=== PATIENT | male | born 1970 | race Asian ===

== ENCOUNTER 2021-05-29 01:45 | Inpatient (IN) ==
[2021-05-29] MEDS ORDERED: dexAMETHasone**PF** 10 MG/ML VIAL IV ONE (02:02)
[2021-05-29] MEDS ORDERED: ALBUT/IPRATROP 3MG/0.5MG NEB 3 ML VIAL NEB STA (02:02)
[2021-05-29] MEDS ORDERED: SODIUM CHLORIDE 0.9% 1000ML 1,000 ML IV SCH (02:15)
[2021-05-29 02:42] LABS: Hematocrit (blood only) 41.4 % (42-52); Hemoglobin 14.8 g/dL (14.0-18.0); Immature Granulocytes # (auto) 0.03 K/uL (0.00-0.02); Immature Granulocytes % (auto) 0.4 %; Lymphocytes # (auto) 0.45 K/uL (1.2-3.4); Lymphocytes % (auto) 6.5 %; Mean Corpuscular Hemoglobin 30.5 pg (25-34); Mean Corpuscular Hgb Conc 35.7 g/dL (32-36); Mean Corpuscular Volume 85.4 fL (80-100); Mean Platelet Volume 10.2 fL (7.4-10.4); Monocytes # (auto) 0.63 K/uL (0.11-0.59); Monocytes % (auto) 9.1 %; Neutrophils # (auto) 5.81 K/uL (1.4-6.5); Platelet Count 191 K/uL (130-400); RDW Coefficient of Variation 12.3 % (11.5-14.5); RDW Standard Deviation 38.6 fL (36.4-46.3); Red Blood Count 4.85 M/uL (4.7-6.1); White Blood Count 6.92 K/uL (4.8-10.8)
[2021-05-29 02:55] LABS: Base Excess VBG -0.6 mEq/L; HCO3 VBG 21 mmol/L; Oxygen Saturation VBG 75.4 %; PCO2 VBG 27 mmHg (38-50); PO2 VBG 36 mmHg; pH VBG 7.51 (7.36-7.41)
[2021-05-29 03:00] LABS: Albumin Level 2.7 gm/dl (3.4-5.0); BUN Creatinine Ratio 15.5 (10-20); Calcium 8.1 mg/dl (8.5-10.1); Est GFR (African American) 118.3 ml/min; Est GFR (Non-African American) 102.1 ml/min
[2021-05-29 03:03] LABS: Albumin Globulin Ratio 0.7 (0.9-2); Bilirubin,Total 0.6 mg/dl (0.2-1); Globulin 3.9 gm/dl (2.5-4.0); Total Protein 6.6 gm/dl (6.4-8.2)
[2021-05-29] MEDS ORDERED: BACLOFEN 10 MG TAB PO STA (03:25)
[2021-05-29] MEDS ORDERED: OPTIRAY 320 125ml IV ONE (03:35)
[2021-05-29] MEDS ORDERED: REMDESIVIR 200 MG in SODIUM CHLORIDE 0.9% 210 ML IV STA (03:44)
--- NOTE | 2021-05-29 03:44 | History & Physical Report ---
Date of Service May 29, 2021 Assessment & Plan (1) Pneumonia due to 2019 novel coronavirus: Plan: Pneumonia due to COVID-19 virus/with hypoxia/worsening chest x-ray on oral dexamethasone 6 mg daily- Dexamethasone 10 mg IV given by the ED Dexamethasone 6 mg IV every morning Remdesivir IV per protocol Azithromycin 5 mg IV daily Guaifenesin extended release 1200 mg p.o. twice daily Albuterol HFA 2 puffs 4 times daily, and every 2 hours as needed DuoNebs every 2 hours as needed Vitamin D 5000 international units p.o. daily Zinc sulfate 220 mg p.o. daily Nasal cannula oxygen, titrate to keep pulse ox around 95% Famotidine 20 mg IV every 12 hours Baclofen 10 mg p.o. 4 times daily as needed hiccups. May occur shortly after administration of Decadron Patient will be placed on Lovenox 0.5 mg kilogram subcu every 12 hours for DVT prophylaxis, but if CTA for PE is positive, will place on Lovenox 1 mg/kg subcu every 12 hours (2) Hypoxia: Plan: See above (3) Hypo-osmolar hyponatremia: Plan: Sodium 124, serum osmolality 260, urine osmolality 205 Patient denies any different fluid intake than usual Question if associated with COVID-19 infection We empirically gave furosemide 20 mg IV in the ED before osmolality results returned Fluid restrict 1500 mL daily Follow serial CMP and magnesium levels (4) Abnormal EKG: Plan: EKG with nonspecific inferior changes The patient will be admitted to telemetry for serial cardiac enzymes, serial EKG's, cardiac rhythm monitoring. (5) Hypothyroidism: Plan: Continue levothyroxine 25 mcg daily (6) Obstructive sleep apnea: Plan: CPAP/BiPAP at bedtime as needed History of Present Illness Chief Complaint: The patient presents to the emergency department with worsening shortness of breath and chest pain Primary Care Provider: Favian Griffith DO The patient is a 50-year-old male with a past medical history including obstructive sleep apnea and hypothyroidism, who reportedly was diagnosed in the outpatient setting with COVID-19 pneumonia several days ago. He has been seen in the emergency department on May 25 and again on May 28, having been given Decadron 6 mg daily and albuterol HFA. He presents to the emergency department with worsening symptoms of shortness of breath, dyspnea on exertion, and in the ED has developed severe left-sided chest pain. Patient also developed hiccups after Being given IV Decadron, which he reports happened in the past every getting an injection of cortisol. He reported his pulse ox is 82% while active at home, and was noted to be 90% at rest while talking with me in the emergency department. He also reports bilateral leg swelling and cramping. Abnormal laboratories: Sodium 124, AST 55, albumin 2.7, serum osmolality 260, urine osmolality 205, glucose 129. COVID-19 test is confirmed positive in the ED Chest x-ray showed worsening multifocal pneumonia. CT angiography of chest for PE ED was negative on 05/25/2021, and is repeated this evening due to new severe chest pain. Allergies Allergy/AdvReac Type Severity Reaction Status Date / Time metronidazole Allergy Intermediate Hives Verified 05/29/21 02:10 pollen extracts Allergy Intermediate ITCHY, Verified 05/29/21 02:10 WATERY EYES, SNEEZING, CONGESTION APPLE SKINS Allergy Intermediate MOUTH Uncoded 05/29/21 02:10 ACE AND ITCHY-CAN EAT APPLE NOT SKIN. 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 Sleep apnea CAN'T TOLERATE CPAP Surgical History S/P wisdom tooth extraction Family History Father Sleep apnea Denies family history of Ovarian cancer Prostate cancer Myocardial infarction Breast cancer Colorectal cancer Social History Smoking Status: Never smoker Tobacco Type: Cigarettes Second Hand Exposure: No; Hx Alcohol Use: Yes Alcohol type: wine Hx Substance Use: No Preferred Language: Syriac Communication Ability: Effective Visual Impairment: No Limitations Hearing Ability: Normal Product Operations Associate Required: No Beliefs That Will Affect Care: None marital status: Single Current Living Situation: Parent Current Living Situation Comment: w/mother current occupational status: employed 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 Feels Safe at Home: Yes Childhood Exposure to Second-Hand Smoke: Yes Dental Care, Regularly: Yes Physical Activity Frequency: 3-4 Times per Week Seatbelt Use: always Sunscreen Use: Yes Assistive Devices: Glasses Review of Systems Review of Systems: The patient denies palpitations, sore throat, fevers, chills, sweats, nausea, vomiting, diarrhea , constipation, abdominal pain, pelvic pain, blood in urine or stool, dysuria, urinary frequency or urgency, lightheadedness, dizziness, headache, memory loss, loss of consciousness, rash, abnormal bruising or bleeding, imbalance, focal or generalized weakness, numbness or tingling in arms or legs, generalized arthralgias or myalgias, back or neck pain, or night sweats. The review of systems is otherwise negative other than for that already noted above, and at least 10 systems have been reviewed. Physical Exam Physical Exam: The patient is awake, alert and oriented 3, well developed and well nourished, normocephalic and atraumatic, lying in bed and in intermittent mild to moderate acute distress due to left-sided chest pain worsened with breathing HEENT--PERRL, EOMI, mucous membranes and oropharynx normal. Neck--supple. No JVD. No bruits. Thyroid normal, trachea midline, no adenopathy. Heart--normal S1 and S2. No murmurs, rubs or gallops. Lungs--coarse breath sounds bilaterally. Mild to moderate respiratory distress associated with intermittent chest pain. No accessory muscle use. Abdomen--normal bowel sounds and soft. Nontender. Nondistended, no hernias or masses, no organomegaly. Extremities--no cyanosis or clubbing. No edema. Dermatologic--normal skin turgor, normal color, no abnormal lymph nodes, no rash. Neurologic--cranial nerves II through XII grossly intact. Rheumatologic--normal range of motion. Psychiatric--normal affect. Results & Data Results & Data ([facility]) Vital Signs (Past 12 Hours) Vital Signs Temp Pulse Pulse Resp BP Pulse Ox 05/29/21 02:34 60 16 93 05/29/21 01:49 97.9 F 89 16 110/58 L 92 Laboratory Results Laboratory Results WBC 6.92 K/uL (4.8-10.8) 05/29/21 02:24 RBC 4.85 M/uL (4.7-6.1) 05/29/21 02:24 Hgb 14.8 g/dL (14.0-18.0) 05/29/21 02:24 Hct 41.4 % (42-52) L 05/29/21 02:24 MCV 85.4 fL (80-100) 05/29/21 02:24 MCH 30.5 pg (25-34) 05/29/21 02:24 MCHC 35.7 g/dL (32-36) 05/29/21 02:24 RDW Std Deviation 38.6 fL (36.4-46.3) 05/29/21 02:24 RDW Coeff of Magdaleno 12.3 % (11.5-14.5) 05/29/21 02:24 Plt Count 191 K/uL (130-400) 05/29/21 02:24 MPV 10.2 fL (7.4-10.4) 05/29/21 02:24 Immature Gran % (Auto) 0.4 % 05/29/21 02:24 Neut % (Auto) 84.0 % 05/29/21 02:24 Lymph % (Auto) 6.5 % 05/29/21 02:24 [place] % (Auto) 9.1 % 05/29/21 02:24 Eos % (Auto) 0.0 % 05/29/21 02:24 Baso % (Auto) 0.0 % 05/29/21 02:24 Neut # (Auto) 5.81 K/uL (1.4-6.5) 05/29/21 02:24 Lymph # (Auto) 0.45 K/uL (1.2-3.4) L 05/29/21 02:24 [place] # (Auto) 0.63 K/uL (0.11-0.59) H 05/29/21 02:24 Eos # (Auto) 0.00 K/uL (0-0.5) 05/29/21 02:24 Baso # (Auto) 0.00 K/uL (0-0.2) 05/29/21 02:24 Immature Gran # (Auto) 0.03 K/uL (0.00-0.02) H 05/29/21 02:24 VBG pH 7.51 (7.36-7.41) H 05/29/21 02:32 VBG pCO2 27 mmHg (38-50) L 05/29/21 02:32 VBG pO2 36 mmHg 05/29/21 02:32 VBG HCO3 21 mmol/L 05/29/21 02:32 VBG O2 Saturation 75.4 % 05/29/21 02:32 VBG Base Excess -0.6 mEq/L 05/29/21 02:32 Sodium 124 mmol/L (136-145) L 05/29/21 02:24 Potassium 4.0 mmol/L (3.5-5.1) 05/29/21 02:24 Chloride 94 mmol/L (98-107) L 05/29/21 02:24 Carbon Dioxide 21 mmol/L (21-32) 05/29/21 02:24 Anion Gap 9.0 (3-11) 05/29/21 02:24 BUN 13 mg/dl (7-18) 05/29/21 02:24 Creatinine 0.84 mg/dl (0.6-1.4) 05/29/21 02:24 Est Cr Clr Drug Dosing 110.0 ml/min 05/29/21 02:24 Est GFR ( Amer) 118.3 ml/min 05/29/21 02:24 Est GFR (Non-Af Amer) 102.1 ml/min 05/29/21 02:24 BUN/Creatinine Ratio 15.5 (10-20) 05/29/21 02:24 Glucose 129 mg/dl (70-99) H 05/29/21 02:24 Osmolality 260 mOsm/kg (280-300) L 05/29/21 02:33 Calcium 8.1 mg/dl (8.5-10.1) L 05/29/21 02:24 Total Bilirubin 0.6 mg/dl (0.2-1) 05/29/21 02:24 AST 55 U/L (15-37) H 05/29/21 02:24 ALT 52 U/L (12-78) 05/29/21 02:24 Alkaline Phosphatase 57 U/L (45-117) 05/29/21 02:24 Total Protein 6.6 gm/dl (6.4-8.2) 05/29/21 02:24 Albumin 2.7 gm/dl (3.4-5.0) L 05/29/21 02:24 Globulin 3.9 gm/dl (2.5-4.0) 05/29/21 02:24 Albumin/Globulin Ratio 0.7 (0.9-2) L 05/29/21 02:24 Urine Color Yellow 05/29/21 04:12 Urine Appearance Clear (Clear) 05/29/21 04:12 Urine pH 7.0 (4.5-7.5) 05/29/21 04:12 Ur Specific [place] 1.006 (1.000-1.030) 05/29/21 04:12 Urine Protein Negative (Negative) 05/29/21 04:12 Urine Glucose (UA) Negative (Negative) 05/29/21 04:12 Urine Ketones Negative (Negative) 05/29/21 04:12 Urine Blood Negative (Negative) 05/29/21 04:12 Urine Nitrite Negative (Negative) 05/29/21 04:12 Urine Bilirubin Negative (Negative) 05/29/21 04:12 Urine Urobilinogen Negative (Negative) 05/29/21 04:12 Ur Leukocyte Esterase Negative (Negative) 05/29/21 04:12 Urine Osmolality 205 mOsm/kg (500-800) L 05/29/21 04:12 COVID-19 Eval Order Covid19 at [facility] 05/29/21 02:10 SARS-CoV-2 (PCR) POSITIVE (Negative) A* 05/29/21 02:10 ECG Additional Comments: ASHKAN GONZALES ID:[id number] 25-MAY-2021 11:21:53 [facility]- EDSTAT ROUTINE RETRIEVAL Sinus bradycardia Nonspecific T wave abnormality Inferior leads Abnormal ECG No previous ECGs available Confirmed by Albert Almonte ([id number]) on 05/25/2021 5:58:05 PM 25mm/s 10mm/mV 150Hz 9.0.9 12SL 241 KISHORE: 16 Referred by: REFERRED SELF Confirmed By: Albert Almonte Vent. rate 58 BPM ID interval 190 ms QRS duration 86 ms QT/QTc 410/402 ms P-R-T axes 33 46 -13 1970 (50 yr) Male 5in 2lb Room: Loc:15 Dining Room Tables Set Up Attendant:Korin High T Code Status & VTE Plan Code Status Full code VTE Prophylaxis Plan VTE Prophylaxis will be ordered: Yes PG Care Time/CCT Total # of Minutes Spent Total Time Spent with Patient: Total time spent is greater than 50% in coordination of care (as documented) at patient's floor/unit and/or counseling patient: Coding Level of Care Code 59540 Initial Inpt Care Lvl 3 Diagnoses Hypoxia R09.02 Abnormal EKG R94.31 Pneumonia due to 2019 novel coronavirus U07.1; J12.82 Hypothyroidism E03.9 Obstructive sleep apnea G47.33 Hypo-osmolar hyponatremia E87.1
[2021-05-29] MEDS ORDERED: FUROSEMIDE 40 MG/4 ML VIAL IV STA (04:00)
[2021-05-29 04:21] LABS: Appearance Urine Clear (Clear); Bilirubin Urine Negative (Negative); Blood Urine Negative (Negative); Color Urine Yellow; Glucose Urine UA Negative (Negative); Ketones Urine Negative (Negative); Leukocyte Esterase Urine Negative (Negative); Nitrite Urine Negative (Negative); Protein Urine Negative (Negative); Specific Gravity Urine 1.006 (1.000-1.030); Urobilinogen Urine Negative (Negative)
[2021-05-29] MEDS ORDERED: ALBUT/IPRATROP 3MG/0.5MG NEB 3 ML VIAL NEB PRN (05:01)
[2021-05-29] MEDS ORDERED: ONDANSETRON INJ 2 MG/ML 2 ML VIAL IV PRN (05:01)
[2021-05-29] MEDS ORDERED: ACETAMINOPHEN 325 MG TAB PO PRN (05:01)
[2021-05-29] MEDS ORDERED: ALBUTEROL HFA 8 GM INHALER INH PRN (05:06)
[2021-05-29] MEDS: SODIUM CHLORIDE 0.9% 10ML FLUSH IV SCH (05:25)
[2021-05-29] MEDS: ENOXAPARIN INJ 40 MG/0.4 ML SYR SQ SCH ×2 (06:52→17:11)
[2021-05-29] MEDS ORDERED: ALBUTEROL HFA 8 GM INHALER INH SCH (07:00)
--- NOTE | 2021-05-29 07:12 | Emergency Department Note ---
History of Present Illness General Chief complaint: Respiratory Problems Stated complaint: OXYGEN DROPPED TO BELOW 80'S Time Seen by Provider: 05/29/21 01:57 History of Present Illness Maximum Pain Intensity: 8 This is a 50-year-old male presenting to the emergency department for evaluation after having hypoxia at home. The patient has been seen a few times this week after being diagnosed with COVID-19 as an outpatient. I did evaluate the patient about 24 hours ago where he was maintaining his O2 saturation, but did have a chest x-ray that showed worsening Covid pneumonia. The patient began with symptoms approximately 8 days ago, and they are progressive. He does have a home pulse oximeter, and was persistently between 82 and 84% at home, increasing his concern. The patient rates his overall discomfort an 8/10. Home Medications Medication Instructions Recorded Confirmed Type levothyroxine 25 mcg tablet 25 mcg PO QPM 03/02/21 05/29/21 History albuterol sulfate 90 mcg/actuation 3 inh INHALATION Q6H #18 g 05/25/21 05/29/21 Rx aerosol inhaler dexamethasone 6 mg tablet 6 mg PO DAILY #7 tab 05/25/21 05/29/21 Rx (Decadron) Allergies Allergy/AdvReac Type Severity Reaction Status Date / Time apple Allergy Intermediate SKINS Verified 05/29/21 05:46 ONLY~MOUTH ACE AND ITCHY-CAN EAT APPLE NOT SKIN. 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 Sleep apnea CAN'T TOLERATE CPAP Surgical History S/P wisdom tooth extraction Family History Father Sleep apnea Denies family history of Ovarian cancer Prostate cancer Myocardial infarction Breast cancer Colorectal cancer Social History Smoking Status: Never smoker Tobacco Type: Cigarettes Second Hand Exposure: No; Hx Alcohol Use: Yes Alcohol type: wine Hx Substance Use: No Preferred Language: Polish Communication Ability: Effective Visual Impairment: No Limitations Hearing Ability: Normal Obstetrician/Gynecologist Required: No Beliefs That Will Affect Care: None marital status: Single Current Living Situation: Parent Current Living Situation Comment: w/mother 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 Other Information That Helps Us Care for You: No Feels Safe at Home: Yes Safety Concerns: Feels Safe At This Time Childhood Exposure to Second-Hand Smoke: Yes Dental Care, Regularly: Yes Physical Activity Frequency: 3-4 Times per Week Seatbelt Use: always Sunscreen Use: Yes Assistive Devices: Glasses Review of Systems A total of 10 systems reviewed and were otherwise negative Physical Exam Vital Signs Vital Signs - 24 hr 05/29/21 01:46 05/29/21 01:49 05/29/21 02:00 Temperature 36.6 C Temperature Source Temporal Artery Scan Pulse Rate 89 Pulse Rate [Apical] Pulse Rate from SpO2 Sensor 57 L Respiratory Rate 16 23 Respiratory Effort / Characteristics Respiratory Depth Respiratory Pattern Blood Pressure 110/58 L 126/75 Blood Pressure Mean 75 92 Pulse Oximetry 92 92 Oxygen Delivery Method Room Air Room Air Sepsis Recent Fever Within 48 Hours No Sepsis New/Unexplained Change in Mental Status No Sepsis Action Taken by Nursing No Action Required 05/29/21 02:03 05/29/21 02:34 Temperature Temperature Source Pulse Rate Pulse Rate [Apical] 60 Pulse Rate from SpO2 Sensor Respiratory Rate 16 Respiratory Effort / Characteristics Non-Labored Spontaneous Spontaneous Respiratory Depth Normal Respiratory Pattern Regular Blood Pressure Blood Pressure Mean Pulse Oximetry 93 Oxygen Delivery Method Room Air Sepsis Recent Fever Within 48 Hours Sepsis New/Unexplained Change in Mental Status Sepsis Action Taken by Nursing VITALS: Vitals are noted on the nurse's note and reviewed by myself. Vital signs as above GENERAL: Moderately ill appearing male who is answering questions appropriately HEAD: Normocephalic atraumatic. HEART: Regular rate and rhythm without murmurs gallops or rubs. LUNGS: Coarse sounds throughout ABDOMEN: Positive normal bowel sounds x 4. Soft, nontender, without masses or organomegaly. No guarding or rebound tenderness. MUSCULOSKELETAL: No muscle atrophy, erythema, or edema noted. Full range of motion in all extremities. Course Administered Medications Enoxaparin Sodium (Enoxaparin Inj 40 Mg/0.4 Ml Syr) 40 mg SQ Q12H PALOMA Stop: 06/28/21 05:59 Last Admin: 05/29/21 06:52 Dose: 40 mg Documented by: [id number] Sodium Chloride (Sodium Chloride 0.9% 10ml Flush) 30 ml IV Q24H PALOMA Stop: 06/02/21 12:01 Last Admin: 05/29/21 05:25 Dose: 30 ml Documented by: [id number] Discontinued Medications Albuterol (Albut/Ipratrop 3mg/0.5mg Neb 3 Ml Vial) 3 ml NEB NOW STA Stop: 05/29/21 02:03 Last Admin: 05/29/21 02:33 Dose: 3 ml Documented by: [id number] Baclofen (Baclofen 10 Mg Tab) 10 mg PO NOW STA Stop: 05/29/21 03:26 Last Admin: 05/29/21 03:57 Dose: 10 mg Documented by: [id number] Dexamethasone Sodium Phosphate (DexamethasonePf 10 Mg/Ml Vial) 10 mg IV NOW ONE Stop: 05/29/21 02:03 Last Admin: 05/29/21 02:40 Dose: 10 mg Documented by: [id number] Furosemide (Furosemide 40 Mg/4 Ml Vial) 20 mg IV NOW STA Stop: 05/29/21 04:01 Last Admin: 05/29/21 04:08 Dose: 20 mg Documented by: [id number] Sodium Chloride (Nss 1000ml) 1,000 mls @ 999 mls/hr IV .Q1H1M PALOMA Stop: 05/29/21 03:15 Last Infusion: 05/29/21 03:41 Dose: 0 mls/hr Documented by: [id number] Admin: 05/29/21 02:40 Dose: 999 mls/hr Documented by: [id number] Remdesivir 200 mg/ Sodium (Chloride) 250 mls @ 125 mls/hr IV ONE STA; Protocol Stop: 05/29/21 05:43 Last Admin: 05/29/21 05:22 Dose: 125 mls/hr Documented by: [id number] Ioversol (Optiray 320 125ml) 119 ml IV ONCE ONE Stop: 05/29/21 03:36 Last Admin: 05/29/21 03:36 Dose: 1 ml Documented by: [id number] Medical Decision Making Differential Diagnosis Differential diagnosis: Etiologies such as viral syndrome, otitis, pharyngitis, pneumonia, influenza, meningitis, urinary tract infection, septic arthritis, soft tissue infectious process, intra-abdominal process, sepsis, bacteremia, as well as others were entertained. Laboratory Data Result diagrams: 05/29/21 02:24 05/29/21 02:24 Lab Results 05/29/21 05/29/21 05/29/21 Range/Units 02:10 02:10 02:24 WBC 6.92 (4.8-10.8) K/uL RBC 4.85 (4.7-6.1) M/uL Hgb 14.8 (14.0-18.0) g/dL Hct 41.4 L (42-52) % MCV 85.4 (80-100) fL MCH 30.5 (25-34) pg MCHC 35.7 (32-36) g/dL RDW Std Deviation 38.6 (36.4-46.3) fL RDW Coeff of Magdaleno 12.3 (11.5-14.5) % Plt Count 191 (130-400) K/uL MPV 10.2 (7.4-10.4) fL Immature Gran % (Auto) 0.4 % Neut % (Auto) 84.0 % Lymph % (Auto) 6.5 % [place] % (Auto) 9.1 % Eos % (Auto) 0.0 % Baso % (Auto) 0.0 % Neut # (Auto) 5.81 (1.4-6.5) K/uL Lymph # (Auto) 0.45 L (1.2-3.4) K/uL [place] # (Auto) 0.63 H (0.11-0.59) K/uL Eos # (Auto) 0.00 (0-0.5) K/uL Baso # (Auto) 0.00 (0-0.2) K/uL Immature Gran # (Auto) 0.03 H (0.00-0.02) K/uL VBG pH (7.36-7.41) VBG pCO2 (38-50) mmHg VBG pO2 mmHg VBG HCO3 mmol/L VBG O2 Saturation % VBG Base Excess mEq/L Sodium (136-145) mmol/L Potassium (3.5-5.1) mmol/L Chloride (98-107) mmol/L Carbon Dioxide (21-32) mmol/L Anion Gap (3-11) BUN (7-18) mg/dl Creatinine (0.6-1.4) mg/dl Est Cr Clr Drug Dosing ml/min Est GFR ( Amer) ml/min Est GFR (Non-Af Amer) ml/min BUN/Creatinine Ratio (10-20) Glucose (70-99) mg/dl Osmolality (280-300) mOsm/kg Calcium (8.5-10.1) mg/dl Total Bilirubin (0.2-1) mg/dl AST (15-37) U/L ALT (12-78) U/L Alkaline Phosphatase (45-117) U/L Total Protein (6.4-8.2) gm/dl Albumin (3.4-5.0) gm/dl Globulin (2.5-4.0) gm/dl Albumin/Globulin Ratio (0.9-2) COVID-19 Eval Order Covid19 at [facility] SARS-CoV-2 (PCR) POSITIVE A* (Negative) 05/29/21 05/29/21 05/29/21 Range/Units 02:24 02:32 02:33 WBC (4.8-10.8) K/uL RBC (4.7-6.1) M/uL Hgb (14.0-18.0) g/dL Hct (42-52) % MCV (80-100) fL MCH (25-34) pg MCHC (32-36) g/dL RDW Std Deviation (36.4-46.3) fL RDW Coeff of Magdaleno (11.5-14.5) % Plt Count (130-400) K/uL MPV (7.4-10.4) fL Immature Gran % (Auto) % Neut % (Auto) % Lymph % (Auto) % [place] % (Auto) % Eos % (Auto) % Baso % (Auto) % Neut # (Auto) (1.4-6.5) K/uL Lymph # (Auto) (1.2-3.4) K/uL [place] # (Auto) (0.11-0.59) K/uL Eos # (Auto) (0-0.5) K/uL Baso # (Auto) (0-0.2) K/uL Immature Gran # (Auto) (0.00-0.02) K/uL VBG pH 7.51 H (7.36-7.41) VBG pCO2 27 L (38-50) mmHg VBG pO2 36 mmHg VBG HCO3 21 mmol/L VBG O2 Saturation 75.4 % VBG Base Excess -0.6 mEq/L Sodium 124 L (136-145) mmol/L Potassium 4.0 (3.5-5.1) mmol/L Chloride 94 L (98-107) mmol/L Carbon Dioxide 21 (21-32) mmol/L Anion Gap 9.0 (3-11) BUN 13 (7-18) mg/dl Creatinine 0.84 (0.6-1.4) mg/dl Est Cr Clr Drug Dosing 110.0 ml/min Est GFR ( Amer) 118.3 ml/min Est GFR (Non-Af Amer) 102.1 ml/min BUN/Creatinine Ratio 15.5 (10-20) Glucose 129 H (70-99) mg/dl Osmolality 260 L (280-300) mOsm/kg Calcium 8.1 L (8.5-10.1) mg/dl Total Bilirubin 0.6 (0.2-1) mg/dl AST 55 H (15-37) U/L ALT 52 (12-78) U/L Alkaline Phosphatase 57 (45-117) U/L Total Protein 6.6 (6.4-8.2) gm/dl Albumin 2.7 L (3.4-5.0) gm/dl Globulin 3.9 (2.5-4.0) gm/dl Albumin/Globulin Ratio 0.7 L (0.9-2) COVID-19 Eval Order SARS-CoV-2 (PCR) (Negative) MDM Narrative Physical exam and history were performed. Nursing notes, EMR, and Medication List were personally reviewed. Patient appears to have worsening symptoms consistent with COVID-19 infection. The patient does have a home pulse oximeter and he has been persistently in the mid to low 80s today. IV access was established and labs were obtained. The patient was given IV Decadron and a DuoNeb. The patient was hydrated with normal saline. Chest x-ray was performed and reviewed. This is with worsening findings again from his COVID-19 infection. Overall the patient does not appear well for discharge home. The case was discussed with the on-call hospitalist, Dr. Isaac, who will evaluate the patient here in the ER. Please see his dictation for further patient course, plan, disposition. The chart was completed utilizing [employer] Speech Voice Recognition Software. Grammatical errors, random word insertions, pronoun errors, and incomplete sentences are an occasional consequence of this system due to software limitations, ambient noise, and hardware issues. Any formal questions or concerns about the content, text, or information contained within the body of this dictation should be directly addressed to the provider for clarification. . Impression & Plan Pneumonia due to 2019 novel coronavirus, SOB (shortness of breath) Discharge Plan Visit Data Chief Complaint: Respiratory Problems Stated Complaint: OXYGEN DROPPED TO BELOW 80'S ED Provider: Erica Gonzalez ED Midlevel Provider: Nicholas Pryor Discharge Problem: Pneumonia due to 2019 novel coronavirus, SOB (shortness of breath) Patient Disposition: Admitted As Inpatient Discharge Instructions Interventions: ED Discharge Assessment Last Done: 05/29/21 04:10
[2021-05-29] MEDS: CHOLECALCIFEROL 1,000 UNITS 25 MCG TAB PO SCH (07:52)
[2021-05-29] MEDS: AZITHROMYCIN 500 MG in DEXTROSE 5% 250 ML IV SCH (07:52)
[2021-05-29] MEDS: BENZONATATE 100 MG CAPSULE PO SCH ×3 (07:52→20:32)
[2021-05-29] MEDS: FAMOTIDINE 20 MG in SYRINGE 3 ML IV SCH ×2 (07:52→20:31)
[2021-05-29] MEDS: ZINC SULFATE 220 MG CAPSULE PO SCH (07:53)
[2021-05-29] MEDS: guaiFENesin 600 MG TABCR PO SCH ×2 (07:53→20:32)
--- NOTE | 2021-05-29 08:07 | XRay Report ---
XR chest 1V portable CLINICAL HISTORY: covid, sob, hypoxia COMPARISON STUDY: May 28, 2021 at 4:18 hours FINDINGS: No pneumothorax. No pleural effusion. Patchy areas of mixed reticular and airspace opacities are seen bilaterally, predominantly in central distribution, worsening since recent prior study. Cardiomediastinal silhouette is within normal limits in size. Pulmonary vasculature is indistinct.. Aorta is tortuous. Osseous structures: unremarkable IMPRESSION: 1. Interval worsening of previously seen patchy mixed reticular and airspace opacities, could repres ent multifocal pneumonia/Covid. Follow-up evaluation until resolution is recommended. ACT 112: Negative or not required by law. The above report was generated using voice recognition software. It may contain grammatical, syntax o r spelling errors. Electronically signed by: Sherrell Negron DO 05/29/2021 8:05 AM
--- NOTE | 2021-05-29 08:19 | CT Scan Report ---
CT angio chest PE protocol CT DOSE: 520.62 mGy.cm HISTORY: 50 years-old Male with PE. Acute shortness of breath. COVID Positive. TECHNIQUE: Multiple CTA images of the chest were obtained after the intravenous administration of 119 ml Optiray. Coronal and sagittal MIPS were obtained from the axial data set and were submitted for review. All measurements were obtained according to NASCET criteria. A dose lowering technique was u tilized adhering to the principles of ALARA. COMPARISON: Chest radiograph of same day, CTA chest 05/25/2021 FINDINGS: CTA: The heart is mildly enlarged. No pericardial effusion. No thoracic aortic aneurysm or dissection. Pat ency of the imaged great vessels. Satisfactory opacification of the pulmonary artery. No filling defe cts identified to suggest thromboembolic disease. CT CHEST: Unremarkable thyroid. No pathologically enlarged lymph nodes. Trace right pleural effusion, new from comparison. Dependent bibasilar opacities with progressively worsened bilateral patchy and subpleural predominant groundglass densities within a multilobar and multi segmental distribution. Thick-walled 2.2 cm cystic lesion of the medial segment right middle lobe on image 134 series 4 redemonstrated. 7 mm solid nodule basal left lower lobe is partially obscured by atelectasis. Central airways are perez nt. Mild wall thickening of the distal esophagus. Nonspecific bilateral perinephric stranding. Unremarkab le soft tissues. No acute fracture. IMPRESSION: 1. No pulmonary emboli. 2. Progressively worsened multisegmental bilateral subpleural predominant groundglass opacities are c ompatible with viral pneumonia 3. Interval development of a trace right pleural effusion. 4. 2.2 cm indeterminate cystic lesion with irregular thick wall redemonstrated within the medial segm ent of the right middle lobe. A follow-up chest CT in 2-3 months is again recommended. 5. 7 mm solid nodule the basal left lower lobe is partially obscured by atelectasis. ACT 112: Negative or not required by law. The above report was generated using voice recognition software. It may contain grammatical, syntax o r spelling errors. Electronically signed by: Oleg Ling M.D. 05/29/2021 8:17 AM
[2021-05-29] MEDS ORDERED: COUGH DROP (SUGAR FREE) LOZ 24 LOZ/1 BOX BUCCAL ONE (11:05)
[2021-05-29] MEDS: BACLOFEN 10 MG TAB PO PRN (17:16)
[2021-05-29] MEDS: LEVOTHYROXINE SODIUM 25 MCG TABLET PO SCH (20:31)
[2021-05-30] MEDS: BACLOFEN 10 MG TAB PO PRN (03:23)
[2021-05-30] MEDS ORDERED: guaiFENesin/DEXTROM SYRUP 200MG/20MG 10ML UDC PO PRN (03:47)
[2021-05-30] MEDS: ENOXAPARIN INJ 40 MG/0.4 ML SYR SQ SCH ×2 (06:09→18:23)
[2021-05-30 08:25] LABS: Basophils # (auto) 0.01 K/uL (0-0.2); Basophils % (auto) 0.1 %; Hematocrit (blood only) 40.2 % (42-52); Hemoglobin 14.7 g/dL (14.0-18.0); Immature Granulocytes # (auto) 0.05 K/uL (0.00-0.02); Immature Granulocytes % (auto) 0.5 %; Lymphocytes # (auto) 0.75 K/uL (1.2-3.4); Lymphocytes % (auto) 7.7 %; Mean Corpuscular Hemoglobin 31.9 pg (25-34); Mean Corpuscular Hgb Conc 36.6 g/dL (32-36); Mean Corpuscular Volume 87.2 fL (80-100); Mean Platelet Volume 10.6 fL (7.4-10.4); Monocytes # (auto) 0.82 K/uL (0.11-0.59); Monocytes % (auto) 8.5 %; Neutrophils # (auto) 8.07 K/uL (1.4-6.5); Neutrophils % (auto) 83.2 %; Platelet Count 230 K/uL (130-400); RDW Coefficient of Variation 12.7 % (11.5-14.5); RDW Standard Deviation 40.9 fL (36.4-46.3); Red Blood Count 4.61 M/uL (4.7-6.1)
[2021-05-30 08:59] LABS: Albumin Level 2.4 gm/dl (3.4-5.0); BUN Creatinine Ratio 23.2 (10-20); Calcium 8.1 mg/dl (8.5-10.1); Est GFR (African American) 117.8 ml/min; Est GFR (Non-African American) 101.6 ml/min; Potassium 3.9 mmol/L (3.5-5.1)
[2021-05-30 09:02] LABS: Albumin Globulin Ratio 0.6 (0.9-2); Bilirubin,Total 0.5 mg/dl (0.2-1); Globulin 3.7 gm/dl (2.5-4.0); Total Protein 6.1 gm/dl (6.4-8.2)
[2021-05-30] MEDS: AZITHROMYCIN 500 MG in DEXTROSE 5% 250 ML IV SCH (09:16)
[2021-05-30] MEDS: dexAMETHasone 6 MG in SYRINGE 0 ML IV SCH (09:16)
[2021-05-30] MEDS: FAMOTIDINE 20 MG in SYRINGE 3 ML IV SCH ×2 (09:16→20:46)
[2021-05-30] MEDS: guaiFENesin 600 MG TABCR PO SCH ×2 (09:17→20:46)
[2021-05-30] MEDS: BENZONATATE 100 MG CAPSULE PO SCH ×3 (09:17→20:46)
[2021-05-30] MEDS: ZINC SULFATE 220 MG CAPSULE PO SCH (09:17)
[2021-05-30] MEDS: CHOLECALCIFEROL 1,000 UNITS 25 MCG TAB PO SCH (09:17)
--- NOTE | 2021-05-30 09:46 | Hospitalist Progress Note ---
Date of Service May 30, 2021 Assessment & Plan (1) Pneumonia due to 2019 novel coronavirus: Plan: Pneumonia due to COVID-19 virus/with hypoxia/worsening chest x-ray on oral dexamethasone 6 mg daily prior to admission illness started around 05/20, day 9 of illness when admitted Dexamethasone 6 mg IV daily, day 2 Remdesivir IV per protocol, day 2 need to control cough so he can rest, lay prone or on his side Duonebs PRN, no wheezing at this time Codeine/guafenisine q6 PRN Tessalon TID scheduled for cough Vitamin D 5000 international units p.o. daily Zinc sulfate 220 mg p.o. daily Famotidine 20 mg IV every 12 hours Thorazine PRN for hiccups but not as bad today check CRP and CXR tomorrow on 4L today, up from room air yesterday (2) Hypoxia: Plan: worsening oxygen requirements, getting fatigued due to coughing spells currently on 4L NC CXR in the morning, check CRP no role for Lasix as he examines dry right now, Na is 129 (3) Hypo-osmolar hyponatremia: Plan: remove fluid restriction Na up to 129 from 124, not great oral intake or solute intake suspect due to acute illness repeat BMP in the morning (4) Abnormal EKG: Plan: EKG with nonspecific inferior changes no chest pain no further work up at this time (5) Hypothyroidism: Plan: Continue levothyroxine 25 mcg daily (6) Obstructive sleep apnea: Plan: CPAP/BiPAP at bedtime as needed Admission and Anticipated Discharge Date Admission Date: May 29, 2021 Subjective patient feels worse than yesterday, coughing more, no relief with Robitussin last night, but no codeine in it, will try Codeine continue Tessalon he is coughing a lot, makes it impossible to get good rest, cannot lay on his side or stomach due to the coughing he ate a little breakfast and it actually helped his stomach less hiccups today, tolerating the dexamethasone and Remdesivir no fever/chills, just feels very fatigued and weak no diarrhea, no vomiting labs reviewed, Na up to 129, Cr is stable at 0.85 Review of Systems Review of Systems: All systems reviewed & are unremarkable except as noted in Subjective Constitutional: + fatigue and + weakness; no fever Respiratory: + cough, + dyspnea, + dyspnea on exertion and + pain with cough; no sputum production Cardiovascular: no chest pain and no edema Gastrointestinal: no abdominal pain, no nausea, no vomiting, no constipation and no diarrhea/loose stools Physical Exam Physical Exam: General: well developed, middle aged male, ill appearing and uncomfortable from coughing, appears tired Neck: supple, trachea midline, normal thyroid Lungs: clear to auscultation bilaterally, + cough that can be harsh, slightly tachypneic, belly breathing, no distress Heart: regular S1 and S2, no murmur, peripheral pulses normal, capillary refill normal, no edema Abdomen: soft, NT, ND, + BS, no hepatomegaly, normal to percussion Extremities: normal in appearance, no cyanosis, no petechiae, strength is 5/5 bilaterally Neuro: awake, cooperative, moves all extremities, no focal motor deficits, CN II-XII intact, sensation in extremities intact, normal speech Skin: warm, dry, no rash, normal turgor Psych: Awake, alert oriented x 3, euthymic affect Results & Data Results & Data ([facility]) Vital Signs (Past 12 Hours) Vital Signs Temp Pulse Pulse Resp BP Pulse Ox 05/30/21 08:01 56 L 26 H 90 05/30/21 07:47 37.2 C 77 18 123/71 91 05/30/21 04:21 18 94 05/30/21 03:58 37.1 C 60 18 104/58 L 91 05/30/21 01:56 57 L 05/29/21 23:05 37.0 C 69 19 133/73 90 Laboratory Results Laboratory Results - last 24 hr 05/29/21 05/29/21 05/30/21 13:50 21:28 07:38 WBC 9.70 RBC 4.61 L Hgb 14.7 Hct 40.2 L MCV 87.2 MCH 31.9 MCHC 36.6 H RDW Std Deviation 40.9 RDW Coeff of Magdaleno 12.7 Plt Count 230 MPV 10.6 H Immature Gran % (Auto) 0.5 Neut % (Auto) 83.2 Lymph % (Auto) 7.7 Lee % (Auto) 8.5 Eos % (Auto) 0.0 Baso % (Auto) 0.1 Neut # (Auto) 8.07 H Lymph # (Auto) 0.75 L Lee # (Auto) 0.82 H Eos # (Auto) 0.00 Baso # (Auto) 0.01 Immature Gran # (Auto) 0.05 H Sodium Potassium Chloride Carbon Dioxide Anion Gap BUN Creatinine Est Cr Clr Drug Dosing Est GFR ( Amer) Est GFR (Non-Af Amer) BUN/Creatinine Ratio Glucose Calcium Total Bilirubin AST ALT Alkaline Phosphatase Troponin I 0.017 0.019 Total Protein Albumin Globulin Albumin/Globulin Ratio 05/30/21 07:38 WBC RBC Hgb Hct MCV MCH MCHC RDW Std Deviation RDW Coeff of Magdaleno Plt Count MPV Immature Gran % (Auto) Neut % (Auto) Lymph % (Auto) Lee % (Auto) Eos % (Auto) Baso % (Auto) Neut # (Auto) Lymph # (Auto) Lee # (Auto) Eos # (Auto) Baso # (Auto) Immature Gran # (Auto) Sodium 129 L Potassium 3.9 Chloride 99 Carbon Dioxide 24 Anion Gap 7.0 BUN 20 H D Creatinine 0.85 Est Cr Clr Drug Dosing 108.0 Est GFR ( Amer) 117.8 Est GFR (Non-Af Amer) 101.6 BUN/Creatinine Ratio 23.2 H Glucose 94 Calcium 8.1 L Total Bilirubin 0.5 AST 48 H ALT 55 Alkaline Phosphatase 51 Troponin I Total Protein 6.1 L Albumin 2.4 L Globulin 3.7 Albumin/Globulin Ratio 0.6 L Medications Administered Current Inpatient Medications Acetaminophen (Acetaminophen 325 Mg Tab) 650 mg PO Q4H PRN PRN Reason: Pain or Fever Stop: 06/28/21 05:00 Albuterol (Albut/Ipratrop 3mg/0.5mg Neb 3 Ml Vial) 3 ml NEB Q2H PRN PRN Reason: dyspnea Stop: 06/28/21 05:00 Albuterol (Albuterol Hfa 8 Gm Inhaler) 2 puffs INH Q2H PRN PRN Reason: sob/wheezing Stop: 06/28/21 05:05 Last Admin: 05/30/21 08:01 Dose: 2 puffs Documented by: Benzonatate (Benzonatate 100 Mg Capsule) 100 mg PO TID PALOMA Stop: 06/28/21 08:59 Last Admin: 05/30/21 09:17 Dose: 100 mg Documented by: Chlorpromazine HCl (Chlorpromazine Hcl 25 Mg Tab) 25 mg PO Q8 PRN PRN Reason: hiccups Stop: 06/29/21 13:59 Enoxaparin Sodium (Enoxaparin Inj 40 Mg/0.4 Ml Syr) 40 mg SQ Q12H PALOMA Stop: 06/28/21 05:59 Last Admin: 05/30/21 06:09 Dose: 40 mg Documented by: Guaifenesin (Guaifenesin 600 Mg Tabcr) 1,200 mg PO Q12 PALOMA Stop: 06/28/21 08:59 Last Admin: 05/30/21 09:17 Dose: 1,200 mg Documented by: Guaifenesin/Codeine Phosphate (Guaifenesin/Codeine 200mg/20mg 10ml Udc) 10 ml PO Q6H PRN PRN Reason: Cough Stop: 06/29/21 09:46 Dexamethasone 6 mg/ Syringe 1.5 mls @ 1 mls/min IV Q24H PALOMA Stop: 06/29/21 08:59 Last Admin: 05/30/21 09:16 Dose: 1 mls/min Documented by: Remdesivir 100 mg/ Sodium (Chloride) 250 mls @ 250 mls/hr IV Q24H PALOMA; Protocol Stop: 06/02/21 12:59 Famotidine 20 mg/ Syringe 5 mls @ 2.5 mls/min IV Q12H PALOMA Stop: 06/28/21 08:59 Last Admin: 05/30/21 09:16 Dose: 2.5 mls/min Documented by: Levothyroxine Sodium (Levothyroxine Sodium 25 Mcg Tablet) 25 mcg PO QPM PALOMA Stop: 06/28/21 20:59 Last Admin: 05/29/21 20:31 Dose: 25 mcg Documented by: Ondansetron HCl (Ondansetron Inj 2 Mg/Ml 2 Ml Vial) 4 mg IV Q6H PRN PRN Reason: Nausea Stop: 06/28/21 05:00 Sodium Chloride (Sodium Chloride 0.9% 10ml Flush) 30 ml IV Q24H PALOMA Stop: 06/02/21 12:01 Last Admin: 05/29/21 05:25 Dose: 30 ml Documented by: Vitamin D (Cholecalciferol 1,000 Units 25 Mcg Tab) 5,000 units PO QAM [facility] Stop: 06/28/21 08:59 Last Admin: 05/30/21 09:17 Dose: 5,000 units Documented by: Zinc Sulfate (Zinc Sulfate 220 Mg Capsule) 220 mg PO QAM PALOMA Stop: 06/28/21 08:59 Last Admin: 05/30/21 09:17 Dose: 220 mg Documented by: PG Care Time/CCT Total # of Minutes Spent Total Time Spent with Patient: Total time spent is greater than 50% in coordination of care (as documented) at patient's floor/unit and/or counseling patient: Coding Level of Care Code 49110 Subseq Hosp Care Lvl 3 Diagnoses Pneumonia due to 2019 novel coronavirus U07.1; J12.82 Hypoxia R09.02 Hypo-osmolar hyponatremia E87.1 Abnormal EKG R94.31 Hypothyroidism E03.9 Obstructive sleep apnea G47.33
[2021-05-30] MEDS ORDERED: chlorproMAZINE HCL 25 MG TAB PO PRN (09:47)
[2021-05-30] MEDS: REMDESIVIR 100 MG in SODIUM CHLORIDE 0.9% 230 ML IV SCH (12:30)
--- NOTE | 2021-05-30 13:20 | Pulmonary Consultation ---
Date of Consultation May 30, 2021 Assessment & Plan (1) Pneumonia due to 2019 novel coronavirus: (2) Acute respiratory failure with hypoxia: (3) Obstructive sleep apnea: (4) Abnormal chest CT: CT chest 05/29/2021 personally reviewed: Bilateral groundglass peripheral opacities appreciated Right middle lobe cyst also appreciated 7 mm left upper lobe pulmonary nodule No mediastinal adenopathy The infiltrates have worsened compared to CAT scan 05/25/2021 --Acute hypoxic respiratory failure Secondary to multilobar COVID-19 pneumonia COVID-19 PCR positive CRP 1.67 Procalcitonin 0.12 QTC 402 Continue with O2 supplementation to keep oxygen saturation between 90-92%. Awake proning will be helpful Continue with incentive spirometry Continue with flutter valve. Recommend patient to be kept euvolemic to negative balance --HELLEN Continue with CPAP/BiPAP nightly and as needed shortness of breath --Right middle lobe cyst Patient has since chronically Likely previous infection in the past Follow-up on the repeat CAT scan which will be done 3 months Plan: Patient CRP is too low to benefit from any immunomodulators Continue with dexamethasone and remdesivir Incentive spirometry [id number] cough suppressant Follow-up BNP and procalcitonin Case discussed with Dr Herndon Please note the above document was generated using voice recognition software. It may contain grammatical, syntax or spelling errors.Any formal questions or concerns about the content, text or information contained within the body of this dictation should be directly addressed to the provider for clarification. History of Present Illness Attending Physician: Chacho Herndon DO History of Present Illness 50-year-old male with past medical history of hypothyroidism admitted to hospital for COVID-19 pneumonia Patient has been having symptoms on 05/25/2021. He came to the ED on that day and was discharged home as he did not need oxygen He came back on 05/29/2021 with hypoxia Pulmonary consulted because of increasing oxygen requirement At the time of examination patient was not in any respiratory distress He says that he is doing well during the day but whenever he is laying down when trying to sleep he has bouts of coughing During the fits of coughing he desaturates at this point I put him on high flow. He denies any reflux-like symptoms but he has noticed that even at home he has similar issues He denies any chest pain. No headache, no nausea, no vomiting Fair appetite Patient does have history of HELLEN and he was not tolerable to CPAP. He did have dental advancement device but it broke. Currently is not using anything Social history: Non-smoker Patient has been born and brought up in [place]. No recent travel history Allergies Allergy/AdvReac Type Severity Reaction Status Date / Time apple Allergy Intermediate SKINS Verified 05/29/21 05:46 ONLY~MOUTH ACE AND ITCHY-CAN EAT APPLE NOT SKIN. 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 [employer] Sleep apnea CAN'T TOLERATE CPAP Surgical History S/P wisdom tooth extraction Family History Father Sleep apnea Denies family history of Ovarian cancer Prostate cancer Myocardial infarction Breast cancer Colorectal cancer Social History Smoking Status: Never smoker Tobacco Type: Cigarettes Second Hand Exposure: No; Hx Alcohol Use: Yes Alcohol type: wine Hx Substance Use: No Preferred Language: Telugu Communication Ability: Effective Visual Impairment: No Limitations Hearing Ability: Normal 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 Beliefs That Will Affect Care: None marital status: Single Current Living Situation: Parent Current Living Situation Comment: w/mother current occupational status: employed 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 [employer] Other Information That Helps Us Care for You: No Feels Safe at Home: Yes Safety Concerns: Feels Safe At This Time Childhood Exposure to Second-Hand Smoke: Yes Dental Care, Regularly: Yes Physical Activity Frequency: 3-4 Times per Week Seatbelt Use: always Sunscreen Use: Yes Assistive Devices: Glasses and Oxygen - Continuous Review of Systems 2 Review of Systems: All systems reviewed & are unremarkable except as noted in HPI & below Physical Exam Physical Exam: Constitutional: No acute distress HEENT: EOMI, PERRLA, thick neck Respiratory system: Decreased air entry bilaterally, no wheeze, no rhonchi, positive crackles bilaterally CVS: S1-S2 positive, no murmurs or gallops Abdomen: Soft, nontender, nondistended, positive bowel sounds x4 Extremities: +2 pulses bilaterally radialis/ dorsalis pedis, no cyanosis, no edema Neuro: Awake alert oriented x3 Psych: Normal mood and affect G/U: No Nevarez Skin: no rashes, warm and dry Lymphatic: no cervical or axillary lymphadenopathy Results & Data Results & Data ([facility]) Vital Signs (Past 12 Hours) Vital Signs Temp Pulse Pulse Resp BP Pulse Ox 05/30/21 12:11 36.9 C 66 20 118/69 92 05/30/21 08:01 56 L 26 H 90 05/30/21 07:47 37.2 C 77 18 123/71 91 05/30/21 04:21 18 94 05/30/21 03:58 37.1 C 60 18 104/58 L 91 05/30/21 01:56 57 L 05/30/21 07:38 05/30/21 07:38 PG Care Time/CCT Total # of Minutes Spent Total Time Spent with Patient: Total time spent is greater than 50% in coordination of care (as documented) at patient's floor/unit and/or counseling patient: Coding Level of Care Code 59816 Inpt Consult Level 5 Diagnoses Pneumonia due to 2019 novel coronavirus U07.1; J12.82 Acute respiratory failure with hypoxia J96.01 Obstructive sleep apnea G47.[address] R93.89
[2021-05-30] MEDS: SODIUM CHLORIDE 0.9% 10ML FLUSH IV SCH (13:42)
[2021-05-30] MEDS: LEVOTHYROXINE SODIUM 25 MCG TABLET PO SCH (20:48)
[2021-05-30] MEDS ORDERED: GABAPENTIN 300 MG CAP PO ONE (23:15)
[2021-05-31] MEDS: ENOXAPARIN INJ 40 MG/0.4 ML SYR SQ SCH ×2 (06:21→17:23)
[2021-05-31 07:58] LABS: Basophils # (auto) 0.01 K/uL (0-0.2); Basophils % (auto) 0.1 %; Hematocrit (blood only) 42.9 % (42-52); Hemoglobin 15.2 g/dL (14.0-18.0); Immature Granulocytes # (auto) 0.03 K/uL (0.00-0.02); Immature Granulocytes % (auto) 0.3 %; Lymphocytes # (auto) 0.74 K/uL (1.2-3.4); Lymphocytes % (auto) 8.1 %; Mean Corpuscular Hemoglobin 30.1 pg (25-34); Mean Corpuscular Hgb Conc 35.4 g/dL (32-36); Monocytes # (auto) 0.66 K/uL (0.11-0.59); Monocytes % (auto) 7.3 %; Neutrophils # (auto) 7.65 K/uL (1.4-6.5); Neutrophils % (auto) 84.2 %; Platelet Count 280 K/uL (130-400); RDW Coefficient of Variation 12.6 % (11.5-14.5); RDW Standard Deviation 39.1 fL (36.4-46.3); Red Blood Count 5.05 M/uL (4.7-6.1); White Blood Count 9.09 K/uL (4.8-10.8)
[2021-05-31] MEDS ORDERED: FUROSEMIDE 20 MG in SYRINGE 0 ML IV ONE (08:21)
[2021-05-31 08:28] LABS: Albumin Level 2.5 gm/dl (3.4-5.0); C Reactive Protein 1.29 mg/dl (0-0.29); Calcium 8.7 mg/dl (8.5-10.1); Creatinine Clr Calc Pharmacy 105.8 ml/min; Est GFR (African American) 117.2 ml/min; Est GFR (Non-African American) 101.1 ml/min
[2021-05-31 08:30] LABS: Albumin Globulin Ratio 0.6 (0.9-2); Bilirubin,Total 0.6 mg/dl (0.2-1); Globulin 4.3 gm/dl (2.5-4.0); Total Protein 6.8 gm/dl (6.4-8.2)
[2021-05-31] MEDS ORDERED: FUROSEMIDE 40 MG/4 ML VIAL IV ONE (08:30)
--- NOTE | 2021-05-31 09:11 | XRay Report ---
XR chest 1V portable CLINICAL HISTORY: covid pneumonia COMPARISON STUDY: May 29, 2021 FINDINGS: No pneumothorax. No pleural effusion. Bilateral patchy mixed reticular and airspace opacities are slightly improved since prior study. Cardiomediastinal silhouette is within normal limits in size. Pulmonary vasculature is obscured.. Aorta is tortuous. Osseous structures: Degenerative changes of the right shoulder. IMPRESSION: 1. Mild interval improvement of multifocal pneumonia. ACT 112: Negative or not required by law. The above report was generated using voice recognition software. It may contain grammatical, syntax o r spelling errors. Electronically signed by: Sherrell Negron DO 05/31/2021 9:09 AM
--- NOTE | 2021-05-31 09:12 | Hospitalist Progress Note ---
Date of Service May 31, 2021 Assessment & Plan (1) Pneumonia due to 2019 novel coronavirus: Plan: Pneumonia due to COVID-19 virus/with hypoxia/worsening chest x-ray on oral dexamethasone 6 mg daily prior to admission illness started around 05/20, day 9 of illness when admitted Dexamethasone 6 mg IV daily, day 3 Remdesivir IV per protocol, day 3 give Lasix 20mg IV today up to 50L and 70% this morning, he has desaturated when coughing two bad coughing spells last night make Codeine scheduled q6, Tessalon TID stop Mucinex as cough not productive CRP still only 1 today, CXR improved, pulling 2500mL on incentive spirometer cannot lay prone, tried last night, makes him cough non stop could lay on his side for about 3-[address] Roy, appreciate his input (2) Hypoxia: Plan: worsening oxygen requirements, getting fatigued due to coughing spells currently on 50L and 70% but saturations are adequate, could likely be turned down CXR improved today, CRP 1, 2500mL on incentive spirometer try Lasix today for neg fluid balance (3) Hypo-osmolar hyponatremia: Plan: Na up to 131, eating better today (4) Abnormal EKG: Plan: EKG with nonspecific inferior changes no chest pain no further work up at this time (5) Hypothyroidism: Plan: Continue levothyroxine 25 mcg daily (6) Obstructive sleep apnea: Plan: CPAP/BiPAP at bedtime as needed Admission and Anticipated Discharge Date Admission Date: May 29, 2021 Subjective patient had a rough night, two severe coughing spells that made him desaturate ended up being placed on high flow, right now he is on 50L and 70%, saturating 96% so can likely turn him down eating really well, says that he is hungry he is not sleeping great since he is not able to lay flat, maybe got 3 hours last night CXR this morning is improved, CRP still only [address] Roy, no role for immune based therapy, will try a dose of Lasix IV this morning Cr is normal, Na is 131 Review of Systems Review of Systems: All systems reviewed & are unremarkable except as noted in Subjective Constitutional: + fatigue and + weakness; no fever Respiratory: + cough, + dyspnea and + dyspnea on exertion Cardiovascular: + chest pain (gets tightness with cough) Gastrointestinal: no abdominal pain, no nausea, no vomiting, no constipation and no diarrhea/loose stools Physical Exam Physical Exam: General: well developed, middle aged male, ill appearing and uncomfortable from coughing, appears tired Neck: supple, trachea midline, normal thyroid Lungs: clear to auscultation bilaterally, + cough that can be harsh, normal respiratory effort, no accessory muscle use, no distress Heart: regular S1 and S2, no murmur, peripheral pulses normal, capillary refill normal, no edema Abdomen: soft, NT, ND, + BS, no hepatomegaly, normal to percussion Extremities: normal in appearance, no cyanosis, no petechiae, strength is 5/5 bilaterally Neuro: awake, cooperative, moves all extremities, no focal motor deficits, CN II-XII intact, sensation in extremities intact, normal speech Skin: warm, dry, no rash, normal turgor Psych: Awake, alert oriented x 3, euthymic affect Results & Data Results & Data ([facility]) Vital Signs (Past 12 Hours) Vital Signs Temp Pulse Pulse Pulse Resp BP Pulse Ox 05/31/21 07:57 36.6 C 62 19 102/69 98 05/31/21 04:16 36.9 C 62 18 91/61 L 91 05/31/21 02:54 47 L 26 H 96 05/31/21 02:41 57 L 28 H 81 L 05/31/21 00:58 45 L 94 05/30/21 23:18 52 L 05/30/21 23:12 36.5 C 64 18 114/59 L 88 L 05/30/21 22:59 90 Laboratory Results Laboratory Results - last 24 hr 05/30/21 05/30/21 05/30/21 07:42 07:42 07:42 WBC RBC Hgb Hct MCV MCH MCHC RDW Std Deviation RDW Coeff of Magdaleno Plt Count MPV Immature Gran % (Auto) Neut % (Auto) Lymph % (Auto) [place] % (Auto) Eos % (Auto) Baso % (Auto) Neut # (Auto) Lymph # (Auto) [place] # (Auto) Eos # (Auto) Baso # (Auto) Immature Gran # (Auto) Sodium Potassium Chloride Carbon Dioxide Anion Gap BUN Creatinine Est Cr Clr Drug Dosing Est GFR ( Amer) Est GFR (Non-Af Amer) BUN/Creatinine Ratio Glucose Calcium Total Bilirubin AST ALT Alkaline Phosphatase C-Reactive Protein 1.64 H NT-Pro-B Natriuret Pep 110 Total Protein Albumin Globulin Albumin/Globulin Ratio Procalcitonin 0.12 05/31/21 05/31/21 07:13 07:13 WBC 9.09 RBC 5.05 Hgb 15.2 Hct 42.9 MCV 85.0 MCH 30.1 MCHC 35.4 RDW Std Deviation 39.1 RDW Coeff of Magdaleno 12.6 Plt Count 280 MPV 10.0 Immature Gran % (Auto) 0.3 Neut % (Auto) 84.2 Lymph % (Auto) 8.1 [place] % (Auto) 7.3 Eos % (Auto) 0.0 Baso % (Auto) 0.1 Neut # (Auto) 7.65 H Lymph # (Auto) 0.74 L [place] # (Auto) 0.66 H Eos # (Auto) 0.00 Baso # (Auto) 0.01 Immature Gran # (Auto) 0.03 H Sodium 131 L Potassium 4.0 Chloride 99 Carbon Dioxide 24 Anion Gap 8.0 BUN 19 H Creatinine 0.86 Est Cr Clr Drug Dosing 105.8 Est GFR ( Amer) 117.2 Est GFR (Non-Af Amer) 101.1 BUN/Creatinine Ratio 22.0 H Glucose 99 Calcium 8.7 Total Bilirubin 0.6 AST 41 H ALT 63 Alkaline Phosphatase 58 C-Reactive Protein 1.29 H NT-Pro-B Natriuret Pep Total Protein 6.8 Albumin 2.5 L Globulin 4.3 H Albumin/Globulin Ratio 0.6 L Procalcitonin Diagnostic Findings XR chest 1V portable CLINICAL HISTORY: covid pneumonia FINDINGS: No pneumothorax. No pleural effusion. Bilateral patchy mixed reticular and airspace opacities are slightly improved since prior study. Cardiomediastinal silhouette is within normal limits in size. Pulmonary vasculature is obscured.. Aorta is tortuous. Osseous structures: Degenerative changes of the right shoulder. IMPRESSION: 1. Mild interval improvement of multifocal pneumonia. Medications Administered Current Inpatient Medications Acetaminophen (Acetaminophen 325 Mg Tab) 650 mg PO Q4H PRN PRN Reason: Pain or Fever Stop: 06/28/21 05:00 Albuterol (Albut/Ipratrop 3mg/0.5mg Neb 3 Ml Vial) 3 ml NEB Q2H PRN PRN Reason: dyspnea Stop: 06/28/21 05:00 Last Admin: 05/31/21 02:40 Dose: 3 ml Documented by: Albuterol (Albuterol Hfa 8 Gm Inhaler) 2 puffs INH Q2H PRN PRN Reason: sob/wheezing Stop: 06/28/21 05:05 Last Admin: 05/30/21 08:01 Dose: 2 puffs Documented by: Benzonatate (Benzonatate 100 Mg Capsule) 100 mg PO TID [facility] Stop: 06/28/21 08:59 Last Admin: 05/30/21 20:46 Dose: 100 mg Documented by: Chlorpromazine HCl (Chlorpromazine Hcl 25 Mg Tab) 25 mg PO Q8 PRN PRN Reason: hiccups Stop: 06/29/21 13:59 Enoxaparin Sodium (Enoxaparin Inj 40 Mg/0.4 Ml Syr) 40 mg SQ Q12H [facility] Stop: 06/28/21 05:59 Last Admin: 05/31/21 06:21 Dose: 40 mg Documented by: Guaifenesin (Guaifenesin 600 Mg Tabcr) 600 mg PO Q12 [facility] Stop: 06/29/21 20:59 Last Admin: 05/30/21 20:46 Dose: 600 mg Documented by: Guaifenesin/Codeine Phosphate (Guaifenesin/Codeine 200mg/20mg 10ml Udc) 10 ml PO Q6H PRN PRN Reason: Cough Stop: 06/29/21 09:46 Last Admin: 05/31/21 06:20 Dose: 10 ml Documented by: Dexamethasone 6 mg/ Syringe 1.5 mls @ 1 mls/min IV Q24H [facility] Stop: 06/29/21 08:59 Last Admin: 05/30/21 09:16 Dose: 1 mls/min Documented by: Remdesivir 100 mg/ Sodium (Chloride) 250 mls @ 250 mls/hr IV Q24H [facility]; Protocol Stop: 06/02/21 12:59 Last Infusion: 05/30/21 13:43 Dose: Infused Documented by: Famotidine 20 mg/ Syringe 5 mls @ 2.5 mls/min IV Q12H [facility] Stop: 06/28/21 08:59 Last Admin: 05/30/21 20:46 Dose: 2.5 mls/min Documented by: Levothyroxine Sodium (Levothyroxine Sodium 25 Mcg Tablet) 25 mcg PO QPM [facility] Stop: 06/28/21 20:59 Last Admin: 05/30/21 20:48 Dose: 25 mcg Documented by: Ondansetron HCl (Ondansetron Inj 2 Mg/Ml 2 Ml Vial) 4 mg IV Q6H PRN PRN Reason: Nausea Stop: 06/28/21 05:00 Sodium Chloride (Sodium Chloride 0.9% 10ml Flush) 30 ml IV Q24H [facility] Stop: 06/02/21 12:01 Last Admin: 05/30/21 13:42 Dose: 30 ml Documented by: Vitamin D (Cholecalciferol 1,000 Units 25 Mcg Tab) 5,000 units PO QAM [facility] Stop: 06/28/21 08:59 Last Admin: 05/30/21 09:17 Dose: 5,000 units Documented by: Zinc Sulfate (Zinc Sulfate 220 Mg Capsule) 220 mg PO QAM [facility] Stop: 06/28/21 08:59 Last Admin: 05/30/21 09:17 Dose: 220 mg Documented by: PG Care Time/CCT Total # of Minutes Spent Total Time Spent: 33 Total Time Spent with Patient: Total time spent is greater than 50% in coordination of care (as documented) at patient's floor/unit and/or counseling patient: Coding Level of Care Code 39160 Subseq Hosp Care Lvl 3 (25 - SIGNIFICANT, SEPARATELY IDENTIFIABLE ) Diagnoses Pneumonia due to 2019 novel coronavirus U07.1; J12.82 Hypoxia R09.02 Hypo-osmolar hyponatremia E87.1 Abnormal EKG R94.31 Hypothyroidism E03.9 Obstructive sleep apnea G47.33
[2021-05-31] MEDS: dexAMETHasone 6 MG in SYRINGE 0 ML IV SCH (09:29)
[2021-05-31] MEDS: FAMOTIDINE 20 MG in SYRINGE 3 ML IV SCH (09:29)
[2021-05-31] MEDS: guaiFENesin 600 MG TABCR PO SCH ×2 (09:31→09:36)
[2021-05-31] MEDS: BENZONATATE 100 MG CAPSULE PO SCH ×3 (09:31→21:49)
[2021-05-31] MEDS: ZINC SULFATE 220 MG CAPSULE PO SCH (09:31)
[2021-05-31] MEDS: CHOLECALCIFEROL 1,000 UNITS 25 MCG TAB PO SCH (09:32)
[2021-05-31] MEDS: REMDESIVIR 100 MG in SODIUM CHLORIDE 0.9% 230 ML IV SCH (11:47)
[2021-05-31] MEDS: SODIUM CHLORIDE 0.9% 10ML FLUSH IV SCH (13:08)
--- NOTE | 2021-05-31 14:50 | Pulmonology Progress Note ---
Date of Service May 31, 2021 Assessment & Plan (1) Pneumonia due to 2019 novel coronavirus: (2) Acute respiratory failure with hypoxia: (3) Obstructive sleep apnea: (4) Abnormal chest CT: Plan: CT chest 05/29/2021 personally reviewed: Bilateral groundglass peripheral opacities appreciated Right middle lobe cyst also appreciated 7 mm left upper lobe pulmonary nodule No mediastinal adenopathy The infiltrates have worsened compared to CAT scan 05/25/2021 --Acute hypoxic respiratory failure Secondary to multilobar COVID-19 pneumonia COVID-19 PCR positive CRP 1.67 Procalcitonin 0.12 QTC 402 Continue with O2 supplementation to keep oxygen saturation between 90-92%. Awake proning will be helpful Continue with incentive spirometry Continue with flutter valve. Recommend patient to be kept euvolemic to negative balance --HELLEN Continue with CPAP/BiPAP nightly and as needed shortness of breath --Right middle lobe cyst Patient has since chronically Likely previous infection in the past Follow-up on the repeat CAT scan which will be done 3 months Plan: 20 mg of Lasix given to the patient today Patient's chest x-ray is better compared to when he came to the hospital Patient's cough could be from underlying Covid as well as GERD I will change the patient's Pepcid to Protonix Continue with guaifenesin with codeine every 6 hours, can give every 4 hours if need be Goal is to suppress patient's cough. Would recommend discontinuing flutter valve for the time being Continue with incentive spirometry Pulmonary will sign off. Please call directly with any questions Case discussed with Dr Herndon Please note the above document was generated using voice recognition software. It may contain grammatical, syntax or spelling errors.Any formal questions or concerns about the content, text or information contained within the body of this dictation should be directly addressed to the provider for clarification. Admission and Anticipated Discharge Date Admission Date: May 29, 2021 Subjective Patient seen and examined at bedside. No acute distress, no adverse events overnight Patient denies any chest pain. He had fits of cough of last night when he was trying to sleep Saturation went down and he was put again on high flow Denies any chest pain. No fever or chills Fair appetite At the time of examination patient was saturating 98% on 60 L 40% FiO2 I went down on 4 to 40 L and he was still needing saturation 94% Review of Systems Review of Systems: All systems reviewed & are unremarkable except as noted in Subjective Physical Exam Physical Exam: Constitutional: No acute distress HEENT: EOMI, PERRLA, thick neck Respiratory system: Decreased air entry bilaterally, no wheeze, no rhonchi, positive crackles bilaterally CVS: S1-S2 positive, no murmurs or gallops Abdomen: Soft, nontender, nondistended, positive bowel sounds x4 Extremities: +2 pulses bilaterally radialis/ dorsalis pedis, no cyanosis, no edema Neuro: Awake alert oriented x3 Psych: Normal mood and affect G/U: No [place] Skin: no rashes, warm and dry Lymphatic: no cervical or axillary lymphadenopathy Results & Data Results & Data ([facility]) Vital Signs (Past 12 Hours) Vital Signs Temp Pulse Pulse Resp BP Pulse Ox 05/31/21 13:05 53 L 22 99 05/31/21 10:53 36.6 C 50 L 19 103/57 L 98 05/31/21 08:00 46 L 05/31/21 07:57 36.6 C 62 19 102/69 98 05/31/21 07:29 61 22 98 05/31/21 04:16 36.9 C 62 18 91/61 L 91 05/31/21 02:54 47 L 26 H 96 05/31/21 07:13 05/31/21 07:13 PG Care Time/CCT Total # of Minutes Spent Total Time Spent with Patient: Total time spent is greater than 50% in coordination of care (as documented) at patient's floor/unit and/or counseling patient: Coding Level of Care Code 46584 Subseq Hosp Care Lvl 3 Diagnoses Pneumonia due to 2019 novel coronavirus U07.1; J12.82 Acute respiratory failure with hypoxia J96.01 Obstructive sleep apnea G47.[address] R93.89
[2021-05-31] MEDS: PANTOprazole 40 MG TAB PO SCH (15:21)
[2021-05-31] MEDS: LEVOTHYROXINE SODIUM 25 MCG TABLET PO SCH (21:47)
--- NOTE | 2021-06-01 01:07 | Communication Note ---
Date of Service: June 01, 2021 Called by bedside nurse in regards to worsening oxygenation with increased oxygen requirement, while asleep. With then sudden awakening and complaint of chills, sweats, and chest pain. Had to be transitioned from oxygen mask to high flow nasal cannula. Subsequently continued to have desaturations into the 70s and a code purple was called overhead. On presentation to bedside patient continuing to endorse mild chest pain similar to before. EKG gathered at that time demonstrating no acute infarcts or signs of ischemia. Patient on high flow nasal cannula at 100% FiO2 with flow of 60 L/min, generating adequate oxygenation. Chest x-ray catheter at this time demonstrating improvement in left basilar opacities with slight increase of right opacity. CBC CMP and troponin gathered at this point time. Patient/successfully able to be weaned to 40 L/min with 60% FiO2 prior to attempted transition to CPAP. Patient endorses that he knows that he is supposed to be using his CPAP at night even when at home, but frequently does not use it and does not ask for it here in the hospital given discomfort with the mask. Patient advised to trial use of CPAP at night given acute worsening of respiratory status in the setting of COVID-19 and obstructive sleep apnea. Despite multiple agreeable prompting patient to trial CPAP, took CPAP off with him couple minutes due to discomfort with facemask, requiring transition back to high flow nasal cannula for maintenance of oxygen saturation. Resident Activity Tracking Resident Involvement: Resident Care Provided Care Provided: Adult Hospital Medicine
[2021-06-01 01:23] LABS: Basophils # (auto) 0.01 K/uL (0-0.2); Basophils % (auto) 0.1 %; Hematocrit (blood only) 41.8 % (42-52); Hemoglobin 14.8 g/dL (14.0-18.0); Immature Granulocytes # (auto) 0.05 K/uL (0.00-0.02); Immature Granulocytes % (auto) 0.7 %; Lymphocytes # (auto) 0.73 K/uL (1.2-3.4); Lymphocytes % (auto) 10.7 %; Mean Corpuscular Hemoglobin 29.9 pg (25-34); Mean Corpuscular Volume 84.4 fL (80-100); Mean Platelet Volume 9.5 fL (7.4-10.4); Monocytes # (auto) 0.46 K/uL (0.11-0.59); Monocytes % (auto) 6.8 %; Neutrophils # (auto) 5.56 K/uL (1.4-6.5); Neutrophils % (auto) 81.7 %; Platelet Count 311 K/uL (130-400); RDW Coefficient of Variation 12.7 % (11.5-14.5); Red Blood Count 4.95 M/uL (4.7-6.1); White Blood Count 6.81 K/uL (4.8-10.8)
[2021-06-01 01:27] LABS: Mean Corpuscular Hgb Conc 35.4 g/dL (32-36)
[2021-06-01 01:44] LABS: Alanine Aminotransferase 59 U/L (12-78); Albumin Level 2.5 gm/dl (3.4-5.0); Aspartate Aminotransferase 39 U/L (15-37); BUN Creatinine Ratio 19.3 (10-20); Blood Urea Nitrogen 19 mg/dl (7-18); Calcium 8.1 mg/dl (8.5-10.1); Carbon Dioxide 27 mmol/L (21-32); Chloride 103 mmol/L (98-107); Creatinine Clr Calc Pharmacy 92.8 ml/min; Est GFR (African American) 103.8 ml/min; Est GFR (Non-African American) 89.5 ml/min; Glucose 102 mg/dl (70-99); Potassium 3.9 mmol/L (3.5-5.1); Sodium 131 mmol/L (136-145)
[2021-06-01 01:49] LABS: Albumin Globulin Ratio 0.6 (0.9-2); Alkaline Phosphatase 58 U/L (45-117); Bilirubin,Total 0.5 mg/dl (0.2-1); Globulin 3.9 gm/dl (2.5-4.0); Total Protein 6.4 gm/dl (6.4-8.2); Troponin I < 0.015 ng/ml (0-0.045)
[2021-06-01] MEDS: ENOXAPARIN INJ 40 MG/0.4 ML SYR SQ SCH ×2 (05:49→18:35)
--- NOTE | 2021-06-01 07:28 | XRay Report ---
XR chest 1V portable CLINICAL HISTORY: Desat Covid COMPARISON STUDY: May 31, 2021 FINDINGS: No definite pneumothorax seen however evaluation is suboptimal because right lung apex is obscured by patient's chin.. No pleural effusion. Patchy mixed reticular and hazy opacities are seen throughout bilateral lungs, not significantly rogers ged since recent prior study performed yesterday. Cardiomediastinal silhouette is stable. Pulmonary vasculature is obscured.. Osseous structures: unremarkable IMPRESSION: 1. Multifocal pneumonia, stable since prior study performed yesterday. ACT 112: Negative or not required by law. The above report was generated using voice recognition software. It may contain grammatical, syntax o r spelling errors. Electronically signed by: Sherrell Negron DO 06/01/2021 7:27 AM
--- NOTE | 2021-06-01 09:24 | Hospitalist Progress Note ---
Date of Service June 01, 2021 Assessment & Plan (1) Pneumonia due to 2019 novel coronavirus: Plan: Pneumonia due to COVID-19 virus/with hypoxia/worsening chest x-ray on oral dexamethasone 6 mg daily prior to admission illness started around 05/20, day 9 of illness when admitted Dexamethasone 6 mg IV daily, day 4 Remdesivir IV per protocol, day 4 Lasix 20mg IV qAM for negative fluid balance continues to have issues at night, was on oxy mask yesterday in the chair, doing well coughing, desaturating, chest pain in the middle of the night and cannot recover, gets panicked back on high flow this morning, tolerating well, will work to titrate down on requirements make Codeine scheduled q6, Tessalon TID stop Mucinex as cough not productive CRP still only 1 on 05/31, CXR improved, pulling 2500mL on incentive spirometer cannot lay prone, makes him cough non stop could lay on his side for about 3-[address] Roy, appreciate his input (2) Hypoxia: Plan: intermittent worsening oxygen requirements, getting fatigued due to coughing spells, night time is the worst for him currently on 45L and 100% but saturations are adequate, will titrate down CXR improved 05/31, CRP 1, 2500mL on incentive spirometer continue Lasix today for neg fluid balance (3) Hypo-osmolar hyponatremia: Plan: Na up to 131, eating better today (4) Abnormal EKG: Plan: EKG with nonspecific inferior changes no chest pain no further work up at this time (5) Hypothyroidism: Plan: Continue levothyroxine 25 mcg daily (6) Obstructive sleep apnea: Plan: CPAP/BiPAP at bedtime as needed Admission and Anticipated Discharge Date Admission Date: May 29, 2021 Subjective patient had another rough night, coughing spells, desaturated placed on high flow again, tried CPAP as he is ordered CPAP at home, did not tolerate well discussed with patient, he said he could never use the CPAP when at home, cannot tolerate mask, tried for maybe a month this morning laying in bed he is 92% on 40L and 45%, wanted to get up to the chair as he does best in the chair turned up oxygen to 100% in anticipation he would desaturate, stood up with RN and got in the chair, feels much better coughing less with the scheduled Tessalon and Codeine reviewed CXR from last night, stable compared to 05/31 and improved overall since admission labs last night shows stable CBC and BMP and troponin negative, no ischemic changes on EKG eating well this morning, drinking well, making urine, no BM for a few days Review of Systems Review of Systems: All systems reviewed & are unremarkable except as noted in Subjective Constitutional: + fatigue and + weakness; no fever Respiratory: + cough, + dyspnea and + dyspnea on exertion; no sputum production Cardiovascular: no chest pain and no edema Gastrointestinal: + constipation; no abdominal pain, no nausea, no vomiting and no diarrhea/loose stools Physical Exam Physical Exam: General: well developed, middle aged male, ill appearing and uncomfortable from coughing, appears tired Neck: supple, trachea midline, normal thyroid Lungs: clear to auscultation bilaterally, + cough that can be harsh, tachypneic, slight accessory muscle use, no distress Heart: regular S1 and S2, no murmur, peripheral pulses normal, capillary refill normal, no edema Abdomen: soft, NT, ND, + BS, no hepatomegaly, normal to percussion Extremities: normal in appearance, no cyanosis, no petechiae, strength is 5/5 bilaterally Neuro: awake, cooperative, moves all extremities, no focal motor deficits, CN II-XII intact, sensation in extremities intact, normal speech Skin: warm, dry, no rash, normal turgor Psych: Awake, alert oriented x 3, euthymic affect Results & Data Results & Data ([facility]) Vital Signs (Past 12 Hours) Vital Signs Temp Pulse Pulse Pulse Resp BP Pulse Ox 06/01/21 07:49 36.7 C 47 L 16 100/66 95 06/01/21 07:36 99 H 20 98 06/01/21 03:33 36.7 C 45 L 20 109/77 94 06/01/21 01:15 30 H 95 06/01/21 01:10 48 L 22 92 06/01/21 00:45 50 L 45 H 117/70 79 L 05/31/21 23:00 43 L 05/31/21 22:49 36.9 C 50 L 18 127/79 97 Laboratory Results Laboratory Results - last 24 hr 06/01/21 06/01/21 06/01/21 00:46 01:15 01:15 WBC 6.81 RBC 4.95 Hgb 14.8 Hct 41.8 L MCV 84.4 MCH 29.9 MCHC 35.4 RDW Std Deviation 39.0 RDW Coeff of Magdaleno 12.7 Plt Count 311 MPV 9.5 Immature Gran % (Auto) 0.7 Neut % (Auto) 81.7 Lymph % (Auto) 10.7 [place] % (Auto) 6.8 Eos % (Auto) 0.0 Baso % (Auto) 0.1 Neut # (Auto) 5.56 Lymph # (Auto) 0.73 L [place] # (Auto) 0.46 Eos # (Auto) 0.00 Baso # (Auto) 0.01 Immature Gran # (Auto) 0.05 H Sodium 131 L Potassium 3.9 Chloride 103 Carbon Dioxide 27 Anion Gap 1.0 L BUN 19 H Creatinine 0.98 Est Cr Clr Drug Dosing 92.8 Est GFR ( Amer) 103.8 Est GFR (Non-Af Amer) 89.5 BUN/Creatinine Ratio 19.3 Glucose 102 H POC Glucose 101 H Calcium 8.1 L Total Bilirubin 0.5 AST 39 H ALT 59 Alkaline Phosphatase 58 Troponin I < 0.015 Total Protein 6.4 Albumin 2.5 L Globulin 3.9 Albumin/Globulin Ratio 0.6 L Medications Administered Current Inpatient Medications Acetaminophen (Acetaminophen 325 Mg Tab) 650 mg PO Q4H PRN PRN Reason: Pain or Fever Stop: 06/28/21 05:00 Albuterol (Albut/Ipratrop 3mg/0.5mg Neb 3 Ml Vial) 3 ml NEB Q2H PRN PRN Reason: dyspnea Stop: 06/28/21 05:00 Last Admin: 05/31/21 02:40 Dose: 3 ml Documented by: Albuterol (Albuterol Hfa 8 Gm Inhaler) 2 puffs INH Q2H PRN PRN Reason: sob/wheezing Stop: 06/28/21 05:05 Last Admin: 05/30/21 08:01 Dose: 2 puffs Documented by: Benzonatate (Benzonatate 100 Mg Capsule) 100 mg PO TID [facility] Stop: 06/28/21 08:59 Last Admin: 05/31/21 21:49 Dose: 100 mg Documented by: Enoxaparin Sodium (Enoxaparin Inj 40 Mg/0.4 Ml Syr) 40 mg SQ Q12H [facility] Stop: 06/28/21 05:59 Last Admin: 06/01/21 05:49 Dose: 40 mg Documented by: Guaifenesin/Codeine Phosphate (Guaifenesin/Codeine 200mg/20mg 10ml Udc) 10 ml PO Q6H [facility] Stop: 06/30/21 09:59 Last Admin: 06/01/21 03:43 Dose: 10 ml Documented by: Dexamethasone 6 mg/ Syringe 1.5 mls @ 1 mls/min IV Q24H [facility] Stop: 06/29/21 08:59 Last Admin: 05/31/21 09:29 Dose: 1 mls/min Documented by: Remdesivir 100 mg/ Sodium (Chloride) 250 mls @ 250 mls/hr IV Q24H [facility]; Protocol Stop: 06/02/21 12:59 Last Infusion: 05/31/21 13:08 Dose: Infused Documented by: Furosemide 20 mg/ Syringe 2 mls @ [facility] Stop: 07/01/21 08:59 Levothyroxine Sodium (Levothyroxine Sodium 25 Mcg Tablet) 25 mcg PO QPM [facility] Stop: 06/28/21 20:59 Last Admin: 05/31/21 21:47 Dose: 25 mcg Documented by: Ondansetron HCl (Ondansetron Inj 2 Mg/Ml 2 Ml Vial) 4 mg IV Q6H PRN PRN Reason: Nausea Stop: 06/28/21 05:00 Pantoprazole Sodium (Pantoprazole 40 Mg Tab) [facility] Stop: 06/30/21 14:59 Last Admin: 05/31/21 15:21 Dose: 40 mg Documented by: Potassium Chloride (Potassium Chloride Crtab 20 Meq Tabcr) 20 meq [facility] Stop: 07/01/21 08:59 Sodium Chloride (Sodium Chloride 0.9% 10ml Flush) 30 ml IV Q24H [facility] Stop: 06/02/21 12:01 Last Admin: 05/31/21 13:08 Dose: 30 ml Documented by: Vitamin D (Cholecalciferol 1,000 Units 25 Mcg Tab) 5,000 [facility] Stop: 06/28/21 08:59 Last Admin: 05/31/21 09:32 Dose: 5,000 units Documented by: Zinc Sulfate (Zinc Sulfate 220 Mg Capsule) 220 [facility] Stop: 06/28/21 08:59 Last Admin: 05/31/21 09:31 Dose: 220 mg Documented by: PG Care Time/CCT Total # of Minutes Spent Total Time Spent: 31 Total Time Spent with Patient: Total time spent is greater than 50% in coordination of care (as documented) at patient's floor/unit and/or counseling patient: spent 19 minutes in the room with patient, transitioned him to chair, titrated oxygen discussed care with RN discussed care with Dr. Roy 12 minutes spent on chart review, discussing with night resident about events overnight, documentation Coding Level of Care Code 01537 Subseq Hosp Care Lvl 3 (25 - SIGNIFICANT, SEPARATELY IDENTIFIABLE ) Diagnoses Pneumonia due to 2019 novel coronavirus U07.1; J12.82 Hypoxia R09.02 Hypo-osmolar hyponatremia E87.1 Abnormal EKG R94.31 Hypothyroidism E03.9 Obstructive sleep apnea G47.33
[2021-06-01] MEDS: POTASSIUM CHLORIDE CRTAB 20 MEQ TABCR PO SCH (10:03)
[2021-06-01] MEDS: FUROSEMIDE 20 MG in SYRINGE 0 ML IV SCH (10:03)
[2021-06-01] MEDS: CHOLECALCIFEROL 1,000 UNITS 25 MCG TAB PO SCH (10:04)
[2021-06-01] MEDS: dexAMETHasone 6 MG in SYRINGE 0 ML IV SCH (10:04)
[2021-06-01] MEDS: PANTOprazole 40 MG TAB PO SCH (10:05)
[2021-06-01] MEDS: ZINC SULFATE 220 MG CAPSULE PO SCH (10:05)
[2021-06-01] MEDS: BENZONATATE 100 MG CAPSULE PO SCH ×3 (10:14→20:11)
[2021-06-01] MEDS: REMDESIVIR 100 MG in SODIUM CHLORIDE 0.9% 230 ML IV SCH (12:21)
[2021-06-01] MEDS: SODIUM CHLORIDE 0.9% 10ML FLUSH IV SCH (13:51)
[2021-06-01] MEDS: LEVOTHYROXINE SODIUM 25 MCG TABLET PO SCH (20:11)
[2021-06-02] MEDS: ENOXAPARIN INJ 40 MG/0.4 ML SYR SQ SCH ×2 (06:07→18:06)
--- NOTE | 2021-06-02 06:08 | Electrocardiogram Report ---
Test Reason : Blood Pressure : / mmHG Vent. Rate : 046 BPM Atrial Rate : 046 BPM P-R Int : 150 ms QRS Dur : 086 ms QT Int : 488 ms P-R-T Axes : 028 037 -36 degrees QTc Int : 427 ms Poor data quality, interpretation may be adversely affected Sinus bradycardia Nonspecific T wave abnormality Abnormal ECG When compared with ECG of 25-MAY-2021 11:21, No significant change was found Confirmed by [place] Domínguez ([id number]) on 06/02/2021 6:08:04 AM Referred By: REFERRED SELF Confirmed By:[place] Domínguez
[2021-06-02] MEDS: POTASSIUM CHLORIDE CRTAB 20 MEQ TABCR PO SCH (08:42)
[2021-06-02] MEDS: ZINC SULFATE 220 MG CAPSULE PO SCH (08:42)
[2021-06-02] MEDS: PANTOprazole 40 MG TAB PO SCH (08:42)
[2021-06-02] MEDS: CHOLECALCIFEROL 1,000 UNITS 25 MCG TAB PO SCH (08:42)
[2021-06-02] MEDS: BENZONATATE 100 MG CAPSULE PO SCH ×3 (08:50→21:26)
[2021-06-02] MEDS: dexAMETHasone 6 MG in SYRINGE 0 ML IV SCH (08:50)
[2021-06-02] MEDS: FUROSEMIDE 20 MG in SYRINGE 0 ML IV SCH (08:50)
--- NOTE | 2021-06-02 09:29 | Hospitalist Progress Note ---
Date of Service June 02, 2021 Assessment & Plan (1) Pneumonia due to 2019 novel coronavirus: Plan: Pneumonia due to COVID-19 virus/with hypoxia/worsening chest x-ray on oral dexamethasone 6 mg daily prior to admission illness started around 05/20, day 9 of illness when admitted Dexamethasone 6 mg IV daily, day 5 Remdesivir IV per protocol, day 5 Lasix 20mg IV qAM for negative fluid balance, making a lot of urine every morning stable on high flow, 35L, 80%, will titrate down further Codeine scheduled q6, Tessalon TID stop Mucinex as cough not productive cough is much better past 24 hours CRP still only 1 on 05/31, CXR improved, pulling 2500mL on incentive spirometer cough (2) Hypoxia: Plan: down to 35L and 80%, breathing comfortably, will titrate down further CXR improved 05/31, CRP 1, 2500mL on incentive spirometer continue Lasix today for neg fluid balance (3) Hypo-osmolar hyponatremia: Plan: Na coming up (4) Abnormal EKG: Plan: EKG with nonspecific inferior changes no chest pain no further work up at this time (5) Hypothyroidism: Plan: Continue levothyroxine 25 mcg daily (6) Obstructive sleep apnea: Plan: CPAP/BiPAP at bedtime as needed Admission and Anticipated Discharge Date Admission Date: May 29, 2021 Subjective patient had a good night, slept for about 9 hours, well rested eating and drinking well, making urine with Lasix every morning coughing a lot less, Codeine working he is 99% on 40L and 80%, turned him down to 35L he feels like he is making progress Review of Systems Review of Systems: All systems reviewed & are unremarkable except as noted in Subjective Constitutional: + fatigue and + weakness; no fever Respiratory: + cough, + dyspnea and + dyspnea on exertion Cardiovascular: no chest pain Gastrointestinal: no abdominal pain, no nausea, no vomiting, no constipation and no diarrhea/loose stools Physical Exam Physical Exam: General: well developed, middle aged male, ill appearing and uncomfortable from coughing, appears tired Neck: supple, trachea midline, normal thyroid Lungs: clear to auscultation bilaterally, + cough that can be harsh, tachypneic, slight accessory muscle use, no distress Heart: regular S1 and S2, no murmur, peripheral pulses normal, capillary refill normal, no edema Abdomen: soft, NT, ND, + BS, no hepatomegaly, normal to percussion Extremities: normal in appearance, no cyanosis, no petechiae, strength is 5/5 bilaterally Neuro: awake, cooperative, moves all extremities, no focal motor deficits, CN II-XII intact, sensation in extremities intact, normal speech Skin: warm, dry, no rash, normal turgor Psych: Awake, alert oriented x 3, euthymic affect Results & Data Results & Data ([facility]) Vital Signs (Past 12 Hours) Vital Signs Temp Pulse Pulse Resp BP Pulse Ox 06/02/21 07:31 36.4 C L 56 L 20 120/71 91 06/02/21 05:22 44 L 06/02/21 03:30 36.8 C 43 L 18 108/62 92 06/01/21 23:06 36.8 C 41 L 20 127/75 97 Medications Administered Current Inpatient Medications Acetaminophen (Acetaminophen 325 Mg Tab) 650 mg PO Q4H PRN PRN Reason: Pain or Fever Stop: 06/28/21 05:00 Albuterol (Albut/Ipratrop 3mg/0.5mg Neb 3 Ml Vial) 3 ml NEB Q2H PRN PRN Reason: dyspnea Stop: 06/28/21 05:00 Last Admin: 05/31/21 02:40 Dose: 3 ml Documented by: Albuterol (Albuterol Hfa 8 Gm Inhaler) 2 puffs INH Q2H PRN PRN Reason: sob/wheezing Stop: 06/28/21 05:05 Last Admin: 05/30/21 08:01 Dose: 2 puffs Documented by: Benzonatate (Benzonatate 100 Mg Capsule) 100 mg PO TID [facility] Stop: 06/28/21 08:59 Last Admin: 06/02/21 08:50 Dose: 100 mg Documented by: Enoxaparin Sodium (Enoxaparin Inj 40 Mg/0.4 Ml Syr) 40 mg SQ Q12H [facility] Stop: 06/28/21 05:59 Last Admin: 06/02/21 06:07 Dose: 40 mg Documented by: Guaifenesin/Codeine Phosphate (Guaifenesin/Codeine 200mg/20mg 10ml Udc) 10 ml PO Q6H [facility] Stop: 06/30/21 09:59 Last Admin: 06/02/21 04:04 Dose: 10 ml Documented by: Dexamethasone 6 mg/ Syringe 1.5 mls @ 1 mls/min IV Q24H [facility] Stop: 06/29/21 08:59 Last Admin: 06/02/21 08:50 Dose: 1 mls/min Documented by: Remdesivir 100 mg/ Sodium (Chloride) 250 mls @ 250 mls/hr IV Q24H [facility]; Protocol Stop: 06/02/21 12:59 Last Infusion: 06/01/21 13:35 Dose: Infused Documented by: Furosemide 20 mg/ Syringe 2 mls @ 4 mls[facility] Stop: 07/01/21 08:59 Last Admin: 06/02/21 08:50 Dose: 4 mls/min Documented by: Levothyroxine Sodium (Levothyroxine Sodium 25 Mcg Tablet) 25 mcg PO QPM [facility] Stop: 06/28/21 20:59 Last Admin: 06/01/21 20:11 Dose: 25 mcg Documented by: Ondansetron HCl (Ondansetron Inj 2 Mg/Ml 2 Ml Vial) 4 mg IV Q6H PRN PRN Reason: Nausea Stop: 06/28/21 05:00 Pantoprazole Sodium (Pantoprazole 40 Mg Tab) 40 mg PO [facility] Stop: 06/30/21 14:59 Last Admin: 06/02/21 08:42 Dose: 40 mg Documented by: Potassium Chloride (Potassium Chloride Crtab 20 Meq Tabcr) 20 meq PO [facility] Stop: 07/01/21 08:59 Last Admin: 06/02/21 08:42 Dose: 20 meq Documented by: Sodium Chloride (Sodium Chloride 0.9% 10ml Flush) 30 ml IV Q24H [facility] Stop: 06/02/21 12:01 Last Admin: 06/01/21 13:51 Dose: 30 ml Documented by: Vitamin D (Cholecalciferol 1,000 Units 25 Mcg Tab) 5,000 units PO [facility] Stop: 06/28/21 08:59 Last Admin: 06/02/21 08:42 Dose: 5,000 units Documented by: Zinc Sulfate (Zinc Sulfate 220 Mg Capsule) 220 mg PO [facility] Stop: 06/28/21 08:59 Last Admin: 06/02/21 08:42 Dose: 220 mg Documented by: PG Care Time/CCT Total # of Minutes Spent Total Time Spent with Patient: Total time spent is greater than 50% in coordination of care (as documented) at patient's floor/unit and/or counseling patient: Coding Level of Care Code 77008 Subseq Hosp Care Lvl 2 Diagnoses Pneumonia due to 2019 novel coronavirus U07.1; J12.82 Hypoxia R09.02 Hypo-osmolar hyponatremia E87.1 Abnormal EKG R94.31 Hypothyroidism E03.9 Obstructive sleep apnea G47.33
[2021-06-02] MEDS: REMDESIVIR 100 MG in SODIUM CHLORIDE 0.9% 230 ML IV SCH (12:27)
[2021-06-02] MEDS: SODIUM CHLORIDE 0.9% 10ML FLUSH IV SCH (13:30)
[2021-06-02] MEDS: LEVOTHYROXINE SODIUM 25 MCG TABLET PO SCH (21:26)
[2021-06-03] MEDS: ENOXAPARIN INJ 40 MG/0.4 ML SYR SQ SCH ×2 (06:27→18:30)
[2021-06-03] MEDS: POTASSIUM CHLORIDE CRTAB 20 MEQ TABCR PO SCH (08:24)
[2021-06-03] MEDS: BENZONATATE 100 MG CAPSULE PO SCH ×3 (08:24→21:02)
[2021-06-03] MEDS: FUROSEMIDE 20 MG in SYRINGE 0 ML IV SCH (08:24)
[2021-06-03] MEDS: CHOLECALCIFEROL 1,000 UNITS 25 MCG TAB PO SCH (08:25)
[2021-06-03] MEDS: PANTOprazole 40 MG TAB PO SCH (08:25)
[2021-06-03] MEDS: dexAMETHasone 6 MG in SYRINGE 0 ML IV SCH (08:25)
[2021-06-03] MEDS: ZINC SULFATE 220 MG CAPSULE PO SCH (08:25)
--- NOTE | 2021-06-03 10:17 | Hospitalist Progress Note ---
Date of Service June 03, 2021 Assessment & Plan (1) Pneumonia due to 2019 novel coronavirus: Plan: Pneumonia due to COVID-19 virus/with hypoxia/worsening chest x-ray on oral dexamethasone 6 mg daily prior to admission illness started around 05/20, day 9 of illness when admitted Dexamethasone 6 mg IV daily, day 6 completed 5 days of Remdesivir Lasix 20mg IV qAM for negative fluid balance, making a lot of urine every morning stable on 15L oxy mask today, big improvement from Vapotherm the past two days Codeine scheduled q6, Tessalon TID will try making Codeine PRN tomorrow stop Mucinex as cough not productive cough is much better past 48 hours CRP still only 1 on 05/31, CXR improved, pulling 2500mL on incentive spirometer hoping he is improved enough that he can go home mid week this week he is frustrated being here, told him he is on too much oxygen (2) Hypoxia: Plan: down to 15L oxy mask, breathing comfortably, will titrate down further CXR improved 05/31, CRP 1, 2500mL on incentive spirometer continue Lasix daily for neg fluid balance (3) Hypo-osmolar hyponatremia: Plan: Na coming up to normal (4) Abnormal EKG: Plan: EKG with nonspecific inferior changes no chest pain no further work up at this time (5) Hypothyroidism: Plan: Continue levothyroxine 25 mcg daily (6) Obstructive sleep apnea: Plan: sleeping a little better overall, last night was rough, will take a nap today Admission and Anticipated Discharge Date Admission Date: May 29, 2021 Subjective patient doing better today, breathing on 15L oxy mask, no distress very sensitive to any movement, gets winded by his oxygen sats are not dropping as much which is good eating well, making urine, had a BM no fever/chills, cough is better controlled with the Codeine Review of Systems Review of Systems: All systems reviewed & are unremarkable except as noted in Subjective Constitutional: + fatigue and + weakness; no fever, no chills and no sweats Respiratory: + cough, + dyspnea and + dyspnea on exertion; no sputum production Cardiovascular: no chest pain Gastrointestinal: no abdominal pain, no nausea, no vomiting, no constipation and no diarrhea/loose stools Physical Exam Physical Exam: General: well developed, middle aged male, ill appearing and uncomfortable from coughing, appears tired Neck: supple, trachea midline, normal thyroid Lungs: clear to auscultation bilaterally, + cough that can be harsh, tachypneic, slight accessory muscle use, no distress Heart: regular S1 and S2, no murmur, peripheral pulses normal, capillary refill normal, no edema Abdomen: soft, NT, ND, + BS, no hepatomegaly, normal to percussion Extremities: normal in appearance, no cyanosis, no petechiae, strength is 5/5 bilaterally Neuro: awake, cooperative, moves all extremities, no focal motor deficits, CN II-XII intact, sensation in extremities intact, normal speech Skin: warm, dry, no rash, normal turgor Psych: Awake, alert oriented x 3, euthymic affect Results & Data Results & Data ([facility]) Vital Signs (Past 12 Hours) Vital Signs Temp Pulse Resp BP Pulse Ox 06/03/21 07:49 36.8 C 56 L 20 123/72 99 06/03/21 03:23 36.9 C 61 19 112/72 94 06/02/21 22:59 36.6 C 50 L 19 127/64 98 Medications Administered Current Inpatient Medications Acetaminophen (Acetaminophen 325 Mg Tab) 650 mg PO Q4H PRN PRN Reason: Pain or Fever Stop: 06/28/21 05:00 Albuterol (Albut/Ipratrop 3mg/0.5mg Neb 3 Ml Vial) 3 ml NEB Q2H PRN PRN Reason: dyspnea Stop: 06/28/21 05:00 Last Admin: 05/31/21 02:40 Dose: 3 ml Documented by: Albuterol (Albuterol Hfa 8 Gm Inhaler) 2 puffs INH Q2H PRN PRN Reason: sob/wheezing Stop: 06/28/21 05:05 Last Admin: 05/30/21 08:01 Dose: 2 puffs Documented by: Benzonatate (Benzonatate 100 Mg Capsule) 100 mg PO TID [facility] Stop: 06/28/21 08:59 Last Admin: 06/03/21 08:24 Dose: 100 mg Documented by: Enoxaparin Sodium (Enoxaparin Inj 40 Mg/0.4 Ml Syr) 40 mg SQ Q12H [facility] Stop: 06/28/21 05:59 Last Admin: 06/03/21 06:27 Dose: 40 mg Documented by: Guaifenesin/Codeine Phosphate (Guaifenesin/Codeine 200mg/20mg 10ml Udc) 10 ml PO Q6H [facility] Stop: 06/30/21 09:59 Last Admin: 06/03/21 06:26 Dose: 10 ml Documented by: Dexamethasone 6 mg/ Syringe 1.5 mls @ 1 mls/min IV Q24H [facility] Stop: 06/29/21 08:59 Last Admin: 06/03/21 08:25 Dose: 1 mls/min Documented by: Furosemide 20 mg/ Syringe 2 mls @ 4 mls/min IV QAM [facility] Stop: 07/01/21 08:59 Last Admin: 06/03/21 08:24 Dose: 4 mls/min Documented by: Levothyroxine Sodium (Levothyroxine Sodium 25 Mcg Tablet) 25 mcg PO QPM [facility] Stop: 06/28/21 20:59 Last Admin: 06/02/21 21:26 Dose: 25 mcg Documented by: Ondansetron HCl (Ondansetron Inj 2 Mg/Ml 2 Ml Vial) 4 mg IV Q6H PRN PRN Reason: Nausea Stop: 06/28/21 05:00 Pantoprazole Sodium (Pantoprazole 40 Mg Tab) [facility] Stop: 06/30/21 14:59 Last Admin: 06/03/21 08:25 Dose: 40 mg Documented by: Potassium Chloride (Potassium Chloride Crtab 20 Meq Tabcr) 20 meq PO [facility] Stop: 07/01/21 08:59 Last Admin: 06/03/21 08:24 Dose: 20 meq Documented by: Vitamin D (Cholecalciferol 1,000 Units 25 Mcg Tab) 5,000 units PO [facility] Stop: 06/28/21 08:59 Last Admin: 06/03/21 08:25 Dose: 5,000 units Documented by: Zinc Sulfate (Zinc Sulfate 220 Mg Capsule) 220 mg PO [facility] Stop: 06/28/21 08:59 Last Admin: 06/03/21 08:25 Dose: 220 mg Documented by: PG Care Time/CCT Total # of Minutes Spent Total Time Spent with Patient: Total time spent is greater than 50% in coordination of care (as documented) at patient's floor/unit and/or counseling patient: Coding Level of Care Code 07860 Subseq Hosp Care Lvl 2 Diagnoses Pneumonia due to 2019 novel coronavirus U07.1; J12.82 Hypoxia R09.02 Hypo-osmolar hyponatremia E87.1 Abnormal EKG R94.31 Hypothyroidism E03.9 Obstructive sleep apnea G47.33
[2021-06-03] MEDS: LEVOTHYROXINE SODIUM 25 MCG TABLET PO SCH (21:02)
[2021-06-04] MEDS: ENOXAPARIN INJ 40 MG/0.4 ML SYR SQ SCH ×2 (06:01→18:24)
[2021-06-04 07:10] LABS: BUN Creatinine Ratio 24.7 (10-20); Calcium 8.3 mg/dl (8.5-10.1); Creatinine Clr Calc Pharmacy 124.7 ml/min; Est GFR (African American) 126.1 ml/min; Est GFR (Non-African American) 108.8 ml/min; Potassium 4.2 mmol/L (3.5-5.1)
[2021-06-04] MEDS: dexAMETHasone 6 MG in SYRINGE 0 ML IV SCH (08:35)
[2021-06-04] MEDS: BENZONATATE 100 MG CAPSULE PO SCH ×3 (08:35→20:57)
[2021-06-04] MEDS: CHOLECALCIFEROL 1,000 UNITS 25 MCG TAB PO SCH (08:36)
[2021-06-04] MEDS: PANTOprazole 40 MG TAB PO SCH (08:36)
[2021-06-04] MEDS: ZINC SULFATE 220 MG CAPSULE PO SCH (08:36)
--- NOTE | 2021-06-04 08:40 | Hospitalist Progress Note ---
Date of Service June 04, 2021 Assessment & Plan (1) Pneumonia due to 2019 novel coronavirus: Plan: Pneumonia due to COVID-19 virus/with hypoxia/worsening chest x-ray on oral dexamethasone 6 mg daily prior to admission illness started around 05/20, day 9 of illness when admitted Dexamethasone 6 mg IV daily, day 7 completed 5 days of Remdesivir Lasix 20mg IV qAM for negative fluid balance, making a lot of urine every morning holding this morning for BP 94 systolic, if BP up later will give it stable on 12L wall high flow today, big improvement from Vapotherm two days ago Codeine scheduled q6, Tessalon TID will try making Codeine PRN once coughing less stop Mucinex as cough not productive cough is much better past 72 hours CRP still only 1 on 05/31, pulling 2500mL on incentive spirometer will get a routine follow up CXR today hoping he is improved enough that he can go home mid week this week he is frustrated being here, told him he is on too much oxygen (2) Hypoxia: Plan: down to 12L wall high flow, breathing comfortably, will titrate down further as tolerated CXR improved 05/31, repeat CXR today CRP 1 when last checked, 2500mL on incentive spirometer continue Lasix daily for neg fluid balance (3) Hypo-osmolar hyponatremia: Plan: Na 135 (4) Abnormal EKG: Plan: EKG with nonspecific inferior changes no chest pain no further work up at this time (5) Hypothyroidism: Plan: Continue levothyroxine 25 mcg daily (6) Obstructive sleep apnea: Plan: sleeping a little better overall Admission and Anticipated Discharge Date Admission Date: May 29, 2021 Subjective patient doing better this morning, down to 12L nasal canula eating well most difficult part of his day is getting out of bed into the chair, causes him to desaturate and he feels like he can't breathe for about 10 minutes then recovers BMP today shows Cr and K are stable, holding Lasix due to BP low normal but RN will recheck later and give if BP up he is frustrated, wants to get home, told him I hope he will get down to low flow by mid week explained he will likely go home on oxygen, will need another week to recover even after discharge, maybe longer Review of Systems Review of Systems: All systems reviewed & are unremarkable except as noted in Subjective Respiratory: + cough, + dyspnea and + dyspnea on exertion Physical Exam Physical Exam: General: well developed, middle aged male, ill appearing and uncomfortable from coughing, appears tired Neck: supple, trachea midline, normal thyroid Lungs: clear to auscultation bilaterally, + cough that can be harsh, tachypneic, slight accessory muscle use, no distress Heart: regular S1 and S2, no murmur, peripheral pulses normal, capillary refill normal, no edema Abdomen: soft, NT, ND, + BS, no hepatomegaly, normal to percussion Extremities: normal in appearance, no cyanosis, no petechiae, strength is 5/5 bilaterally Neuro: awake, cooperative, moves all extremities, no focal motor deficits, CN II-XII intact, sensation in extremities intact, normal speech Skin: warm, dry, no rash, normal turgor Psych: Awake, alert oriented x 3, euthymic affect Results & Data Results & Data ([facility]) Vital Signs (Past 12 Hours) Vital Signs Temp Pulse Resp BP Pulse Ox 06/04/21 07:47 36.8 C 59 L 18 94/63 L 89 L 06/04/21 03:48 36.8 C 55 L 19 119/77 94 06/03/21 23:52 37.2 C 47 L 19 127/80 92 Laboratory Results Laboratory Results - last 24 hr 06/04/21 05:52 Sodium 135 L Potassium 4.2 Chloride 102 Carbon Dioxide 27 Anion Gap 6.0 BUN 18 Creatinine 0.72 Est Cr Clr Drug Dosing 124.7 Est GFR ( Amer) 126.1 Est GFR (Non-Af Amer) 108.8 BUN/Creatinine Ratio 24.7 H Glucose 90 Calcium 8.3 L Medications Administered Current Inpatient Medications Acetaminophen (Acetaminophen 325 Mg Tab) 650 mg PO Q4H PRN PRN Reason: Pain or Fever Stop: 06/28/21 05:00 Albuterol (Albut/Ipratrop 3mg/0.5mg Neb 3 Ml Vial) 3 ml NEB Q2H PRN PRN Reason: dyspnea Stop: 06/28/21 05:00 Last Admin: 05/31/21 02:40 Dose: 3 ml Documented by: Albuterol (Albuterol Hfa 8 Gm Inhaler) 2 puffs INH Q2H PRN PRN Reason: sob/wheezing Stop: 06/28/21 05:05 Last Admin: 05/30/21 08:01 Dose: 2 puffs Documented by: Benzonatate (Benzonatate 100 Mg Capsule) 100 mg PO TID [facility] Stop: 06/28/21 08:59 Last Admin: 06/04/21 08:35 Dose: 100 mg Documented by: Enoxaparin Sodium (Enoxaparin Inj 40 Mg/0.4 Ml Syr) 40 mg SQ Q12H [facility] Stop: 06/28/21 05:59 Last Admin: 06/04/21 06:01 Dose: 40 mg Documented by: Guaifenesin/Codeine Phosphate (Guaifenesin/Codeine 200mg/20mg 10ml Udc) 10 ml PO Q6H [facility] Stop: 06/30/21 09:59 Last Admin: 06/04/21 06:00 Dose: 10 ml Documented by: Dexamethasone 6 mg/ Syringe 1.5 mls @ 1 mls/min IV Q24H [facility] Stop: 06/29/21 08:59 Last Admin: 06/04/21 08:35 Dose: 1 mls/min Documented by: Furosemide 20 mg/ Syringe 2 mls @ 4 mls/min IV QAM [facility] Stop: 07/01/21 08:59 Last Admin: 06/03/21 08:24 Dose: 4 mls/min Documented by: Levothyroxine Sodium (Levothyroxine Sodium 25 Mcg Tablet) 25 mcg PO QPM [facility] Stop: 06/28/21 20:59 Last Admin: 06/03/21 21:02 Dose: 25 mcg Documented by: Ondansetron HCl (Ondansetron Inj 2 Mg/Ml 2 Ml Vial) 4 mg IV Q6H PRN PRN Reason: Nausea Stop: 06/28/21 05:00 Pantoprazole Sodium (Pantoprazole 40 Mg Tab) [facility] [place] Stop: 06/30/21 14:59 Last Admin: 06/04/21 08:36 Dose: 40 mg Documented by: Potassium Chloride (Potassium Chloride Crtab 20 Meq Tabcr) 20 meq [facility] [place] Stop: 07/01/21 08:59 Last Admin: 06/03/21 08:24 Dose: 20 meq Documented by: Vitamin D (Cholecalciferol 1,000 Units 25 Mcg Tab) 5,000 units [facility] [place] Stop: 06/28/21 08:59 Last Admin: 06/04/21 08:36 Dose: 5,000 units Documented by: Zinc Sulfate (Zinc Sulfate 220 Mg Capsule) 220 mg PO QAM [facility] Stop: 06/28/21 08:59 Last Admin: 06/04/21 08:36 Dose: 220 mg Documented by: PG Care Time/CCT Total # of Minutes Spent Total Time Spent with Patient: Total time spent is greater than 50% in coordination of care (as documented) at patient's floor/unit and/or counseling patient: Coding Level of Care Code 50285 Subseq Hosp Care Lvl 2 Diagnoses Pneumonia due to 2019 novel coronavirus U07.1; J12.82 Hypoxia R09.02 Hypo-osmolar hyponatremia E87.1 Abnormal EKG R94.31 Hypothyroidism E03.9 Obstructive sleep apnea G47.33
[2021-06-04] MEDS: FUROSEMIDE 20 MG in SYRINGE 0 ML IV SCH (10:50)
[2021-06-04] MEDS: POTASSIUM CHLORIDE CRTAB 20 MEQ TABCR PO SCH (10:50)
--- NOTE | 2021-06-04 11:14 | XRay Report ---
XR chest 1V portable HISTORY: covid, hypoxia COMPARISON: Chest 06/01/2021. FINDINGS: The heart is normal in size. No pleural effusions. No pneumothorax. Patchy multifocal airsp christal opacities have slightly progressed. IMPRESSION: Slight progression of the patchy multifocal airspace opacities consistent with a viral pneumonia. ACT 112: Negative or not required by law. Electronically signed by: Basilio Glaser M.D. 06/04/2021 11:13 AM
[2021-06-04] MEDS: LEVOTHYROXINE SODIUM 25 MCG TABLET PO SCH (20:56)
[2021-06-05] MEDS: ENOXAPARIN INJ 40 MG/0.4 ML SYR SQ SCH ×2 (05:43→17:43)
[2021-06-05] MEDS: dexAMETHasone 6 MG in SYRINGE 0 ML IV SCH (08:44)
[2021-06-05] MEDS: FUROSEMIDE 20 MG in SYRINGE 0 ML IV SCH (08:44)
[2021-06-05] MEDS: CHOLECALCIFEROL 1,000 UNITS 25 MCG TAB PO SCH (08:45)
[2021-06-05] MEDS: ZINC SULFATE 220 MG CAPSULE PO SCH (08:45)
[2021-06-05] MEDS: PANTOprazole 40 MG TAB PO SCH (08:45)
[2021-06-05] MEDS: POTASSIUM CHLORIDE CRTAB 20 MEQ TABCR PO SCH (08:46)
[2021-06-05] MEDS: BENZONATATE 100 MG CAPSULE PO SCH ×3 (08:56→22:34)
--- NOTE | 2021-06-05 22:08 | Hospitalist Progress Note ---
Date of Service June 05, 2021 Assessment & Plan (1) Pneumonia due to 2019 novel coronavirus: Plan: Pneumonia due to COVID-19 virus/with hypoxia/worsening chest x-ray on oral dexamethasone 6 mg daily prior to admission illness started around 05/20, day 9 of illness when admitted Dexamethasone 6 mg IV daily, day 8 completed 5 days of Remdesivir Lasix 20mg IV qAM for negative fluid balance, making a lot of urine every morning holding this morning for BP 94 systolic, if BP up later will give it stable on 3L nasal cannula big improvement from Vapotherm Codeine scheduled q6, Tessalon TID will try making Codeine PRN once coughing less stop Mucinex as cough not productive cough is much better past 72 hours CRP still only 1 on 05/31, pulling 2500mL on incentive spirometer will get a routine follow up CXR today Patient is improving today and there is a strong possibility, he may be discharged tomorrow, will reassess in AM. (2) Hypoxia: Plan: down to 3L NC, breathing comfortably, will titrate down further as tolerated CXR improved 05/31, repeat CXR today CRP 1 when last checked, 2500mL on incentive spirometer continue Lasix daily for neg fluid balance (3) Hypo-osmolar hyponatremia: Plan: Na 135 (4) Abnormal EKG: Plan: EKG with nonspecific inferior changes no chest pain no further work up at this time (5) Hypothyroidism: Plan: Continue levothyroxine 25 mcg daily (6) Obstructive sleep apnea: Plan: sleeping a little better overall Admission and Anticipated Discharge Date Admission Date: May 29, 2021 Subjective Patient reports feeling better today. He has no new complaints. Review of Systems Review of Systems: The patient denies palpitations, sore throat, fevers, chills, sweats, nausea, vomiting, diarrhea , constipation, abdominal pain, pelvic pain, blood in urine or stool, dysuria, urinary frequency or urgency, lightheadedness, dizziness, headache, memory loss, loss of consciousness, rash, abnormal bruising or bleeding, imbalance, focal or generalized weakness, numbness or tingling in arms or legs, generalized arthralgias or myalgias, back or neck pain, or night sweats. The review of systems is otherwise negative other than for that already noted above, and at least 10 systems have been reviewed. Physical Exam 2 Physical Exam: General: well developed, middle aged male, ill appearing and uncomfortable from coughing, appears tired Neck: supple, trachea midline, normal thyroid Lungs: clear to auscultation bilaterally Heart: regular S1 and S2, no murmur, peripheral pulses normal, capillary refill normal, no edema Abdomen: soft, NT, ND, + BS, no hepatomegaly, normal to percussion Extremities: normal in appearance, no cyanosis, no petechiae, strength is 5/5 bilaterally Neuro: awake, cooperative, moves all extremities, no focal motor deficits, CN II-XII intact, sensation in extremities intact, normal speech Skin: warm, dry, no rash, normal turgor Psych: Awake, alert oriented x 3, euthymic affect Results & Data Results & Data ([facility]) Vital Signs (Past 12 Hours) Vital Signs Temp Pulse Pulse Resp BP Pulse Ox 06/05/21 19:55 36.5 C 63 20 110/67 95 06/05/21 16:00 36.8 C 60 20 98/62 L 94 06/05/21 11:13 36.3 C L 63 18 90/53 L 95 06/05/21 10:23 46 L PG Care Time/CCT Total # of Minutes Spent Total Time Spent with Patient: Total time spent is greater than 50% in coordination of care (as documented) at patient's floor/unit and/or counseling patient: Coding Level of Care Code 16263 Subseq Hosp Care Lvl 3 Diagnoses Pneumonia due to 2019 novel coronavirus U07.1; J12.82 Hypoxia R09.02 Hypo-osmolar hyponatremia E87.1 Abnormal EKG R94.31 Hypothyroidism E03.9 Obstructive sleep apnea G47.33 Time Spent (min) 35
[2021-06-05] MEDS: LEVOTHYROXINE SODIUM 25 MCG TABLET PO SCH (22:34)
[2021-06-06] MEDS: ENOXAPARIN INJ 40 MG/0.4 ML SYR SQ SCH (05:31)
[2021-06-06 07:29] LABS: Hematocrit (blood only) 41.7 % (42-52); Hemoglobin 14.7 g/dL (14.0-18.0); Mean Corpuscular Hemoglobin 30.1 pg (25-34); Mean Corpuscular Hgb Conc 35.3 g/dL (32-36); Mean Corpuscular Volume 85.3 fL (80-100); Mean Platelet Volume 9.1 fL (7.4-10.4); Platelet Count 402 K/uL (130-400); RDW Coefficient of Variation 12.5 % (11.5-14.5); RDW Standard Deviation 38.9 fL (36.4-46.3); Red Blood Count 4.89 M/uL (4.7-6.1)
[2021-06-06 08:07] LABS: BUN Creatinine Ratio 22.4 (10-20); Calcium 8.8 mg/dl (8.5-10.1); Creatinine Clr Calc Pharmacy 114.1 ml/min; Est GFR (African American) 121.4 ml/min; Est GFR (Non-African American) 104.7 ml/min; Potassium 4.2 mmol/L (3.5-5.1)
[2021-06-06] MEDS: CHOLECALCIFEROL 1,000 UNITS 25 MCG TAB PO SCH (09:25)
[2021-06-06] MEDS: ZINC SULFATE 220 MG CAPSULE PO SCH (09:26)
[2021-06-06] MEDS: FUROSEMIDE 20 MG in SYRINGE 0 ML IV SCH (09:26)
[2021-06-06] MEDS: POTASSIUM CHLORIDE CRTAB 20 MEQ TABCR PO SCH (09:26)
[2021-06-06] MEDS: PANTOprazole 40 MG TAB PO SCH (09:26)
[2021-06-06] MEDS: dexAMETHasone 6 MG in SYRINGE 0 ML IV SCH (09:26)
[2021-06-06] MEDS: BENZONATATE 100 MG CAPSULE PO SCH ×2 (10:41→14:05)
--- NOTE | 2021-06-08 09:37 | Discharge Summary ---
Date of Service June 06, 2021 Admission HPI Per Admitting Provider The patient is a 50-year-old male with a past medical history including obstructive sleep apnea and hypothyroidism, who reportedly was diagnosed in the outpatient setting with COVID-19 pneumonia several days ago. He has been seen in the emergency department on May 25 and again on May 28, having been given Decadron 6 mg daily and albuterol HFA. He presents to the emergency department with worsening symptoms of shortness of breath, dyspnea on exertion, and in the ED has developed severe left-sided chest pain. Patient also developed hiccups after Being given IV Decadron, which he reports happened in the past every getting an injection of cortisol. He reported his pulse ox is 82% while active at home, and was noted to be 90% at rest while talking with me in the emergency department. He also reports bilateral leg swelling and cramping. Abnormal laboratories: Sodium 124, AST 55, albumin 2.7, serum osmolality 260, urine osmolality 205, glucose 129. COVID-19 test is confirmed positive in the ED Chest x-ray showed worsening multifocal pneumonia. CT angiography of chest for PE ED was negative on 05/25/2021, and is repeated this evening due to new severe chest pain. Principal Diagnosis COVID 19 Pneumonia Discharge Exam General: well developed, middle aged male Neck: supple, trachea midline, normal thyroid Lungs: clear to auscultation bilaterally Heart: regular S1 and S2, no murmur, peripheral pulses normal, capillary refill normal, no edema Abdomen: soft, NT, ND, + BS, no hepatomegaly, normal to percussion Extremities: normal in appearance, no cyanosis, no petechiae, strength is 5/5 bilaterally Neuro: awake, cooperative, moves all extremities, no focal motor deficits, CN II-XII intact, sensation in extremities intact, normal speech Skin: warm, dry, no rash, normal turgor Psych: Awake, alert oriented x 3, euthymic affect Discharge Data Allergies Allergy/AdvReac Type Severity Reaction Status Date / Time apple Allergy Intermediate SKINS Verified 05/29/21 05:46 ONLY~MOUTH ACE AND ITCHY-CAN EAT APPLE NOT SKIN. metronidazole Allergy Intermediate Hives Verified 05/29/21 02:10 pollen extracts Allergy Intermediate ITCHY, Verified 05/29/21 02:10 WATERY EYES, SNEEZING, CONGESTION Consultations 05/29/21 02:14 ED Decision to Admit Stat 05/30/21 11:35 Consult Pulmonology Routine Ordered Studies 05/29/21 03:28 CT angio chest PE protocol Urgent Hospital Course (1) Pneumonia due to 2019 novel coronavirus: Pneumonia due to COVID-19 virus/with hypoxia/worsening chest x-ray on oral dexamethasone 6 mg daily prior to admission illness started around 05/20, day 9 of illness when admitted Dexamethasone 6 mg IV daily, day 8 completed 5 days of Remdesivir Lasix 20mg IV qAM for negative fluid balance, making a lot of urine every morning holding this morning for BP 94 systolic, if BP up later will give it stable on 3L nasal cannula big improvement from Vapotherm Codeine scheduled q6, Tessalon TID will try making Codeine PRN once coughing less stop Mucinex as cough not productive cough is much better past 72 hours CRP still only 1 on 05/31, pulling 2500mL on incentive spirometer ON 06/06/21 Patient passed his 2 step and will be discharged (2) Hypoxia: down to 3L NC, breathing comfortably, will titrate down further as tolerated CXR improved 05/31, repeat CXR today CRP 1 when last checked, 2500mL on incentive spirometer continue Lasix daily for neg fluid balance (3) Hypo-osmolar hyponatremia: Na 135 (4) Abnormal EKG: EKG with nonspecific inferior changes no chest pain no further work up at this time (5) Hypothyroidism: Continue levothyroxine 25 mcg daily (6) Obstructive sleep apnea: sleeping a little better overall Total Time Total Time Spent Total Time Spent (In Minutes): 32 Discharge Plan Discharge Items Patient Disposition: Home - Self-Care Reason For Visit: COVID-19 PNA WITH HYPOXIA, WORSENING CXR Discharge Diagnosis: COVID 19 Activity: Resume your previous activity Non-emergency contact: Primary Care Provider Call non-emergency contact if: you have any medication questions Follow-up/Referrals: Favian Griffith, DO [Primary Care Provider] - 06/12/21 9:20 am (Please follow up with Dr. Griffith on Saturday06/12/21 at 9:20 am. Please arrive to the office at 9:05 am for your appointment. If you are unable to keep this appointment, please call the office to reschedule at [phone].) Diet: Regular Addtl Attending Provider Instructions: You were seen for COVID 19.During your stay at [facility], we have made an effort to correct the problem that brought you to the hospital while keeping you as comfortable as possible. Medications were used to bring your condition under control and your discharge instructions will include directions for any medications you should take after leaving the hospital. Please make sure you see your Primary Care Provider as part of your follow up plan. At discharge, you were evaluated for the need to be on oxygen, thankfully you are now tolerating room air. You can stop dexamethasone At this point, you do not need to quarantine. I ordered pantoprazole which may help with your hiccups. Please followup with PCP in 1 week Pending Studies at Discharge: No Stand-Alone Forms: My [facility] Health, Work/School Release, Smoking Cessation Medications and DC Order Prescriptions: New benzonatate [Tessalon Perles] 100 mg Capsule 100 mg PO TID PRN (Reason: cough) Qty: 15 RF: 0 Mucinex 1,200 mg tablet extended release 12hr 1,200 mg PO BID PRN (Reason: cough) Qty: 20 RF: 0 pantoprazole 40 mg tablet,delayed release (DR/EC) 40 mg PO DAILY Qty: 10 RF: 0 Continued albuterol sulfate 90 mcg/actuation HFA aerosol inhaler 3 inh inhalation Q6H Qty: 18 RF: 2 levothyroxine 25 mcg tablet 25 mcg PO QPM RF: 0 Discontinued dexamethasone [Decadron] 6 mg tablet 6 mg PO DAILY Qty: 7 RF: 0 Discharge Orders: Discharge Order (Routine); Ordered 06/06/21 Ordered By: Phi Ruiz/Other Patient Handouts: Disinfecting Your Home of COVID-19, How COVID-19 Spreads, COVID-19 Prevention, COVID-19 Home Care Admission Data Admit Date/Time: 05/29/21 03:44 Attending Provider: Phi Mejia Admit Provider: Satish Isaac Primary Care Provider: Favian Griffith. Other Providers: Satish Isaac ; Chani Roy Other Interventions: Discharge Summary Assessment (RN) Last Done: 06/06/21 14:22 Supervising Physician Co-Signing Physician Notes 32 Coding Level of Care Code D/C DAY MANAGEMENT >30 MINS Diagnoses Pneumonia due to 2019 novel coronavirus U07.1; J12.82 Hypoxia R09.02 Hypo-osmolar hyponatremia E87.1 Abnormal EKG R94.31 Hypothyroidism E03.9 Obstructive sleep apnea G47.33
== END 2021-06-06 15:30 | disposition home or self-care (01) | DRG 177 ==
LOC: ED 01:45 → SUATTDRO 03:44 → 2S 03:44 → 2E 05-30 12:31